=== PATIENT | male | born 1945 | race American Indian/Alaskan Native ===

== ENCOUNTER 2017-08-30 15:35 | Emergency (ER) | payer SELFPAY ==
[2017-08-30 17:08] VITALS: BP 138/70
== END 2017-08-30 23:00 | disposition left against medical advice (07) ==
LOC: ED 15:35
DX: M79.89 Other specified soft tissue disorders (principal); Z53.21 Procedure and treatment not carried out due to patient leaving prior to being seen by health care provider

== ENCOUNTER 2021-03-17 18:53 | Inpatient (IN) | payer MEDICARE ==
[2021-03-17] MEDS ORDERED: SODIUM CHLORIDE 0.9% 1000 ML 1,000 ML IV ONE (18:58)
[2021-03-17] MEDS ORDERED: TETANUS,DIPH,PERTUSS(ACELL) VACCINE 0.5 ML SYRINGE IM ONE (19:00)
[2021-03-17] MEDS ORDERED: IPRATROPIUM/ALBUTEROL SULFATE 3 ML AMPUL.NEB IH ONE (19:01)
--- NOTE | 2021-03-17 19:02 | Emergency Department Report ---
HPI - General Chief Complaint: Syncope Time Seen by Provider: 03/17/21 18:56 - HPI HPI: 75-year-old male with history of hypertension, asthma, and COPD is brought in by EMS after a syncopal episode and ground-level fall. The patient states that he was walking when he suddenly experienced lightheadedness and blacked out. He woke up and he was on the floor. He says he did not hit his head but that he only bumped his right elbow. He denies any preceding chest pain, shortness of breath, palpitations, sweating, or any other symptoms other than lighth eadedness. He does say that for the past 3 days he has not been eating well and has not been feeling well. According to the EMS report, the patient's initial blood pressure was 92/46. He was given 1 L of IV fluids which improved his blood pressure to 142/65. His heart rate was in the 100s to 110s. The patient states he has no complaints at this time. He is not vaccinated against COVID- 19. He denies any headache, vision change, neck pain, back pain, chest pain, palpitations, abdominal pain, nausea/vomiting, dysuria, focal weakness, sensory changes, vertigo, or any other complaints. He says his right elbow was only bumped and he has no significant pain there. ED Past Medical Hx - Past Medical History Previous Medical History?: Yes Hx Hypertension: Yes Hx Asthma: Yes Hx COPD: Yes Additional medical history: prostate - Surgical History Past Surgical History?: Yes Additional Surgical History: cataracts - Social History Smoking Status: Current Every Day Smoker Substance Use Type: None ED Review of Systems ROS: Stated complaint: WEAKNESS Other details as noted in HPI Constitutional: denies: chills, fever Eyes: denies: eye pain, vision change ENT: denies: throat pain, congestion Respiratory: denies: cough, shortness of breath Cardiovascular: syncope. denies: chest pain, palpitations Gastrointestinal: denies: abdominal pain, nausea, vomiting Genitourinary: denies: dysuria, frequency Musculoskeletal: denies: back pain, joint swelling Skin: denies: rash, pruritus Neurological: denies: headache, weakness, numbness, paresthesias Physical Exam - Physical Exam Vital Signs: Vital Signs 03/17/21 18:53 Temperature 98.2 F Pulse Rate 113 H Respiratory 26 H Rate Blood Pressure 135/75 O2 Sat by Pulse 100 Oximetry Physical Exam: GENERAL: Well developed and well nourished. No acute distress HEAD: Normocephalic. Possible contusion noted to the posterior occiput. No abrasions or lacerations. ENT: Moist mucous membranes. EYES: Extraocular movements are intact. Pupils are equal round and reactive to light bilaterally NECK: Supple. Full ROM is intact. Trachea is midline. LUNGS: Nonlabored breathing. Equal chest rise bilaterally. There are inspiratory and expiratory wheezes noted throughout. CARDIOVASCULAR: Regular rate and rhythm. No murmurs or rubs. VASCULAR: Cap refill < 2 seconds ABDOMEN: Abdomen is soft and nondistended. There is no significant tenderness, guarding or rebound. SKIN: Skin is warm and dry NEURO: Patient is awake, alert, and oriented. grader meat II-XII grossly intact. No focal deficits. Normal motor and sensory exam throughout. Normal speech. MUSCULOSKELETAL: No obvious deformities. There is an abrasion noted to the right elbow but there is normal range of motion and no bony tenderness. No significant tenderness. No tenderness of the chest wall. No hip tenderness. Normal ROM throughout. BACK/SPINE: No midline tenderness or step-offs of the C/T spine. There is midline tenderness noted to the lumbar spine. No costovertebral angle tenderness. ED Course Vital Signs 03/17/21 18:53 Temperature 98.2 F Pulse Rate 113 H Respiratory 26 H Rate Blood Pressure 135/75 O2 Sat by Pulse 100 Oximetry ED Medical Decision Making - Lab Data Result diagrams: 03/17/21 19:21 03/17/21 19:21 Lab Results 03/17/21 03/17/21 03/17/21 Range/Units 18:51 19:21 19:21 WBC 8.8 (4.5-11.0) K/mm3 RBC 4.34 (3.65-5.03) M/mm3 Hgb 13.9 (11.8-15.2) gm/dl Hct 40.5 (35.5-45.6) % MCV 93 (84-94) fl MCH 32 (28-32) pg MCHC 34 (32-34) % RDW 14.4 (13.2-15.2) % Plt Count 247 (140-440) K/mm3 Lymph % (Auto) 7.7 L (13.4-35.0) % Summers % (Auto) 7.1 (0.0-7.3) % Eos % (Auto) 3.9 (0.0-4.3) % Baso % (Auto) 0.2 (0.0-1.8) % Lymph # (Auto) 0.7 L (1.2-5.4) K/mm3 Summers # (Auto) 0.6 (0.0-0.8) K/mm3 Eos # (Auto) 0.3 (0.0-0.4) K/mm3 Baso # (Auto) 0.0 (0.0-0.1) K/mm3 Seg Neutrophils % 81.1 H (40.0-70.0) % Seg Neutrophils # 7.1 (1.8-7.7) K/mm3 PT 16.0 H (12.2-14.9) Sec. INR 1.22 H (0.87-1.13) APTT 25.6 (24.2-36.6) Sec. D-Dimer 7891.50 H (0-234) ng/mlDDU Sodium (137-145) mmol/L Potassium (3.6-5.0) mmol/L Chloride (98-107) mmol/L Carbon Dioxide (22-30) mmol/L Anion Gap mmol/L BUN (9-20) mg/dL Creatinine (0.8-1.3) mg/dL Estimated GFR ml/min BUN/Creatinine Ratio % Glucose (75-100) mg/dL POC Glucose 125 H (70-105) mg/dL Calcium (8.4-10.2) mg/dL Magnesium (1.7-2.3) mg/dL Ferritin (30.0-300.0) ng/mL Total Bilirubin (0.1-1.2) mg/dL Direct Bilirubin (0-0.2) mg/dL Indirect Bilirubin mg/dL AST (5-40) units/L ALT (7-56) units/L Alkaline Phosphatase (35-129) units/L Lactate Dehydrogenase (91-180) units/L Troponin T (0.00-0.029) ng/mL C-Reactive Protein (0.00-1.30) mg/dL NT-Pro-B Natriuret Pep (0-900) pg/mL Total Protein (6.3-8.2) g/dL Albumin (3.9-5) g/dL Albumin/Globulin Ratio % Triglycerides (2-149) mg/dL Cholesterol (50-199) mg/dL LDL Cholesterol Direct (50-130) mg/dL HDL Cholesterol (40-59) mg/dL Cholesterol/HDL Ratio % TSH (0.270-4.200) mlU/mL 03/17/21 03/17/21 03/17/21 Range/Units 19:21 19:21 19:21 WBC (4.5-11.0) K/mm3 RBC (3.65-5.03) M/mm3 Hgb (11.8-15.2) gm/dl Hct (35.5-45.6) % MCV (84-94) fl MCH (28-32) pg MCHC (32-34) % RDW (13.2-15.2) % Plt Count (140-440) K/mm3 Lymph % (Auto) (13.4-35.0) % Summers % (Auto) (0.0-7.3) % Eos % (Auto) (0.0-4.3) % Baso % (Auto) (0.0-1.8) % Lymph # (Auto) (1.2-5.4) K/mm3 Summers # (Auto) (0.0-0.8) K/mm3 Eos # (Auto) (0.0-0.4) K/mm3 Baso # (Auto) (0.0-0.1) K/mm3 Seg Neutrophils % (40.0-70.0) % Seg Neutrophils # (1.8-7.7) K/mm3 PT (12.2-14.9) Sec. INR (0.87-1.13) APTT (24.2-36.6) Sec. D-Dimer (0-234) ng/mlDDU Sodium 140 (137-145) mmol/L Potassium 4.2 (3.6-5.0) mmol/L Chloride 105.3 (98-107) mmol/L Carbon Dioxide 22 (22-30) mmol/L Anion Gap 17 mmol/L BUN 31 H (9-20) mg/dL Creatinine 2.0 H (0.8-1.3) mg/dL Estimated GFR 40 ml/min BUN/Creatinine Ratio 16 % Glucose 114 H (75-100) mg/dL POC Glucose (70-105) mg/dL Calcium 8.8 (8.4-10.2) mg/dL Magnesium 2.40 H (1.7-2.3) mg/dL Ferritin (30.0-300.0) ng/mL Total Bilirubin 0.50 (0.1-1.2) mg/dL Direct Bilirubin < 0.2 (0-0.2) mg/dL Indirect Bilirubin 0.3 mg/dL AST 38 (5-40) units/L ALT 65 H (7-56) units/L Alkaline Phosphatase 223 H (35-129) units/L Lactate Dehydrogenase (91-180) units/L Troponin T 0.029 (0.00-0.029) ng/mL C-Reactive Protein (0.00-1.30) mg/dL NT-Pro-B Natriuret Pep 1299 H (0-900) pg/mL Total Protein 7.1 (6.3-8.2) g/dL Albumin 4.1 (3.9-5) g/dL Albumin/Globulin Ratio 1.4 % Triglycerides (2-149) mg/dL Cholesterol (50-199) mg/dL LDL Cholesterol Direct (50-130) mg/dL HDL Cholesterol (40-59) mg/dL Cholesterol/HDL Ratio % TSH 2.130 (0.270-4.200) mlU/mL 03/17/21 03/17/21 03/17/21 Range/Units 19:21 19:21 19:21 WBC (4.5-11.0) K/mm3 RBC (3.65-5.03) M/mm3 Hgb (11.8-15.2) gm/dl Hct (35.5-45.6) % MCV (84-94) fl MCH (28-32) pg MCHC (32-34) % RDW (13.2-15.2) % Plt Count (140-440) K/mm3 Lymph % (Auto) (13.4-35.0) % Summers % (Auto) (0.0-7.3) % Eos % (Auto) (0.0-4.3) % Baso % (Auto) (0.0-1.8) % Lymph # (Auto) (1.2-5.4) K/mm3 Summers # (Auto) (0.0-0.8) K/mm3 Eos # (Auto) (0.0-0.4) K/mm3 Baso # (Auto) (0.0-0.1) K/mm3 Seg Neutrophils % (40.0-70.0) % Seg Neutrophils # (1.8-7.7) K/mm3 PT (12.2-14.9) Sec. INR (0.87-1.13) APTT (24.2-36.6) Sec. D-Dimer (0-234) ng/mlDDU Sodium (137-145) mmol/L Potassium (3.6-5.0) mmol/L Chloride (98-107) mmol/L Carbon Dioxide (22-30) mmol/L Anion Gap mmol/L BUN (9-20) mg/dL Creatinine (0.8-1.3) mg/dL Estimated GFR ml/min BUN/Creatinine Ratio % Glucose 115 H (75-100) mg/dL POC Glucose (70-105) mg/dL Calcium (8.4-10.2) mg/dL Magnesium (1.7-2.3) mg/dL Ferritin 340.1 H 337.1 H (30.0-300.0) ng/mL Total Bilirubin (0.1-1.2) mg/dL Direct Bilirubin (0-0.2) mg/dL Indirect Bilirubin mg/dL AST (5-40) units/L ALT (7-56) units/L Alkaline Phosphatase (35-129) units/L Lactate Dehydrogenase 201 H (91-180) units/L Troponin T (0.00-0.029) ng/mL C-Reactive Protein 0.40 (0.00-1.30) mg/dL NT-Pro-B Natriuret Pep (0-900) pg/mL Total Protein (6.3-8.2) g/dL Albumin (3.9-5) g/dL Albumin/Globulin Ratio % Triglycerides (2-149) mg/dL Cholesterol (50-199) mg/dL LDL Cholesterol Direct (50-130) mg/dL HDL Cholesterol (40-59) mg/dL Cholesterol/HDL Ratio % TSH (0.270-4.200) mlU/mL 03/17/21 Range/Units 23:56 WBC (4.5-11.0) K/mm3 RBC (3.65-5.03) M/mm3 Hgb (11.8-15.2) gm/dl Hct (35.5-45.6) % MCV (84-94) fl MCH (28-32) pg MCHC (32-34) % RDW (13.2-15.2) % Plt Count (140-440) K/mm3 Lymph % (Auto) (13.4-35.0) % Summers % (Auto) (0.0-7.3) % Eos % (Auto) (0.0-4.3) % Baso % (Auto) (0.0-1.8) % Lymph # (Auto) (1.2-5.4) K/mm3 Summers # (Auto) (0.0-0.8) K/mm3 Eos # (Auto) (0.0-0.4) K/mm3 Baso # (Auto) (0.0-0.1) K/mm3 Seg Neutrophils % (40.0-70.0) % Seg Neutrophils # (1.8-7.7) K/mm3 PT (12.2-14.9) Sec. INR (0.87-1.13) APTT (24.2-36.6) Sec. D-Dimer (0-234) ng/mlDDU Sodium (137-145) mmol/L Potassium (3.6-5.0) mmol/L Chloride (98-107) mmol/L Carbon Dioxide (22-30) mmol/L Anion Gap mmol/L BUN (9-20) mg/dL Creatinine (0.8-1.3) mg/dL Estimated GFR ml/min BUN/Creatinine Ratio % Glucose (75-100) mg/dL POC Glucose (70-105) mg/dL Calcium (8.4-10.2) mg/dL Magnesium (1.7-2.3) mg/dL Ferritin (30.0-300.0) ng/mL Total Bilirubin (0.1-1.2) mg/dL Direct Bilirubin (0-0.2) mg/dL Indirect Bilirubin mg/dL AST (5-40) units/L ALT (7-56) units/L Alkaline Phosphatase (35-129) units/L Lactate Dehydrogenase (91-180) units/L Troponin T 0.032 H (0.00-0.029) ng/mL C-Reactive Protein (0.00-1.30) mg/dL NT-Pro-B Natriuret Pep (0-900) pg/mL Total Protein (6.3-8.2) g/dL Albumin (3.9-5) g/dL Albumin/Globulin Ratio % Triglycerides 136 (2-149) mg/dL Cholesterol 158 (50-199) mg/dL LDL Cholesterol Direct 117 (50-130) mg/dL HDL Cholesterol 28 L (40-59) mg/dL Cholesterol/HDL Ratio 5.64 % TSH (0.270-4.200) mlU/mL - EKG Data -: EKG Interpreted by In - EKG Data 03/18/21 02:06 Atrial fibrillation with rapid ventricular response. Left axis deviation. Left anterior fascicular block. IVCD like pattern without significant ST segment or T wave abnormalities. - Radiology Data CHEST 2 VIEWS INDICATION / CLINICAL INFORMATION: Chest Pain. COMPARISON: None available. FINDINGS: SUPPORT DEVICES: None. HEART / MEDIASTINUM: No significant abnormality. LUNGS / PLEURA: Lungs are hyperexpanded. Chronic interstitial change No pneumothorax. Nodular density projects overlying left l aly however this is a crossing ribs. Follow-up chest x-ray recommended. Pelvis one view INDICATION: Pain FINDINGS: Degenerative changes in bilateral hips. Superior and inferior pubic rami appear intact. Degenerative change throughout spine Signer Name: Patrick Lewis MD Signed: 03/17/2021 6:34 PM Workstation Name: [id number] HEAD WITHOUT CONTRAST INDICATION : Syncopal episode. TECHNIQUE: Axial, coronal and sagittal CT imaging was performed from the skull apex through the skull base without contrast. All CT scans at this location are performed using CT dose reduction for ALARA by means of automated exposure control. COMPARISON: None available. FINDINGS: Motion artifact limits this exam. PARENCHYMA: No mass, midline shift, hemorrhage, extraaxial collection or acute territorial infarction. VENTRICLES: Symmetric and normal in size. SOFT TISSUES: No significant abnormality of the included soft tissues/orbits. BONES: No acute osseous abnormality. SINUSES: Changes from prior sinus surgery are noted with mild mucosal thickening along the right maxillary sinus and extensive because of thickening/opacification throughout the ethmoid air cells, sphenoid and frontal sinuses. The mastoid air cells are clear. ADDITIONAL FINDINGS: There is dense generalized intracranial atherosclerosis. IMPRESSION: 1. No acute intracranial abnormality. 2. Additional findings as above. Signer Name: Edwardo Ray MD Signed: 03/17/2021 10:55 PM Workstation Name: [id number] - Medical Decision Making 75-year-old male with COPD and asthma brought in by EMS after syncopal episode and ground-level fall. The patient had no preceding red flag symptoms. However, he was noted to be hypotensive with a blood pressure of 92/46 which improved to 142/60 1:05 liter of IV fluids. His heart rate is in the 100s to 110s and on the monitor appears to show atrial fibrillation with rapid ventricular response. His blood pressure has stabilized. He is afebrile. He is ANO x4 and has a nonfocal neurologic exam and no current complaints. He has an abrasion noted to right elbow but full range of motion without bony tenderness. We will give Tdap. He has inspiratory expiratory wheezes throughout. We will give duo nebs and IV Solu-Medrol. We will also give an additional 1 L of IV fluids. We will perform broad work-up with a full set of labs including EKG and chest x-ray. We will send the COVID-19 order set as well. We will perform CT of the head to assess for evidence of intracranial hemorrhage given that the patient is over the age of 61 with possible head contusion and loss of consciousness. We will also obtain CT of the C-spine and L-spine given possible midline tenderness on exam. We will monitor his heart rate closely and if necessary will initiate Cardizem drip to slow his heart rate. We will hold off on anticoagulation until the patient has undergone head CT. Labs reveal no leukocytosis or anemia. He is noted to have an JUAN DANIEL with a creat inine of 2.0. Initial troponin is negative. BNP is elevated at 1299. On repeat assessment at 815, the patient is resting comfortably in the bed. His heart rate remains in the 110s to 120s. His blood pressures stable. Normal oxygen saturation. Chest x-ray is equivocal. EKG appears to show atrial fibrillation with rapid ventricular response and ST elevation noted in lead V3 only. I spoke with Dr. [place] of cardiology who reviewed the EKG and stated that there is no STEMI. He stated that she has an IVCD-like pattern with nonspecific ST changes. There is nonspecific mild elevation of alk phos and ALT.I have ordered a right upper quadrant ultrasound to assess for evidence of cholelith iasis/cholecystitis. On repeat assessment at 10 PM, the patient is resting comfortably in the bed. His heart rate remains elevated in the 120s. I have ordered a Cardizem drip with a 10 mg IV bolus. The patient's D-dimer has returned elevated at 7891. We will perform CTA of the chest to assess for evidence of pulmonary embolism versus aortic dissection versus atypical pneumonia. The patient's repeat troponin is mildly elevated at 0.03 which I suspect is related to demand ischemia from his A. fib with RVR. On repeat assessment at 1220, patient's heart rate has improved to the high 90s. CT of the head, C-spine, and L-spine revealed no acute abnormalities. CTA of the chest shows no evidence of pulmonary embolism or pneumonia but there is evidence of possible aspiration. There is also mention of possibly dilated CBD. At 12:40 AM, I spoke with Dr. Steward the on-call hospitalist regarding the case and he agreed with my plan to initiate a heparin drip for anticoagulation and to give Levaquin for possible aspiration pneumonia. He accepts the patient for admission and will assume care. He understands that right upper quadrant ultrasound is still pending as well as urinalysis is still pending and will follow this up. Critical Care Time: Yes Critical care time in (mins) excluding proc time.: 80 Critical care attestation.: If time is entered above; I have spent that time in minutes in the direct care of this critically ill patient, excluding procedure time. Critical care time was spent in the evaluation, assessment, work-up, and management of atrial fibrillation with rapid ventricular rate requiring initiation of a Cardizem drip as well as a heparin drip, coordination with specialist, multiple reassessments reevaluations ED Disposition Clinical Impression: JUAN DANIEL (acute kidney injury), Syncope, New onset a-fib, Suspected 2019 novel coronavirus infection, COPD exacerbation, Concussion, Elevated troponin, Dehydration Disposition: 09 OP ADMIT IP TO THIS HOSP Is pt being admited?: Yes Condition: Stable
--- NOTE | 2021-03-17 19:38 | XRay Report ---
CHEST 2 VIEWS INDICATION / CLINICAL INFORMATION: Chest Pain. COMPARISON: None available. FINDINGS: SUPPORT DEVICES: None. HEART / MEDIASTINUM: No significant abnormality. LUNGS / PLEURA: Lungs are hyperexpanded. Chronic interstitial change No pneumothorax. Nodular density projects overlying left lung however this is a crossing ribs. Follow-up chest x-ray recommended. Pelvis one view INDICATION: Pain FINDINGS: Degenerative changes in bilateral hips. Superior and inferior pubic rami appear intact. Deg enerative change throughout spine Signer Name: Patrick Lewis MD Signed: 03/17/2021 7:34 PM Workstation Name: [id number]
[2021-03-17 19:59] LABS: Basophils % (Auto) 0.2 % (0.0-1.8); Eosinophils # (Auto) 0.3 K/mm3 (0.0-0.4); Eosinophils % (Auto) 3.9 % (0.0-4.3); Hematocrit 40.5 % (35.5-45.6); Hemoglobin 13.9 gm/dl (11.8-15.2); Lymphocytes # (Auto) 0.7 K/mm3 (1.2-5.4); Lymphocytes % (Auto) 7.7 % (13.4-35.0); Mean Corpuscular HGB Conc 34 % (32-34); Mean Corpuscular Volume 93 fl (84-94); Monocytes # (Auto) 0.6 K/mm3 (0.0-0.8); Monocytes % (Auto) 7.1 % (0.0-7.3); Platelet Count 247 K/mm3 (140-440); Red Blood Count 4.34 M/mm3 (3.65-5.03); Red Cell Distribution Width 14.4 % (13.2-15.2)
[2021-03-17 20:09] LABS: C-Reactive Protein 0.4 mg/dL (0.00-1.30)
[2021-03-17 20:10] LABS: Alanine Aminotransferase 65 units/L (7-56); Albumin 4.1 g/dL (3.9-5); BUN/Creatinine Ratio 16; Blood Urea Nitrogen 31 mg/dL (9-20); Calcium 8.8 mg/dL (8.4-10.2); Hemolysis Index 4
[2021-03-17 20:16] LABS: Bilirubin,Direct < 0.2 mg/dL (0-0.2)
[2021-03-17 20:33] LABS: INR 1.22 (0.87-1.13)
[2021-03-17 20:34] LABS: Partial Thromboplastin Time 25.6 Sec. (24.2-36.6)
[2021-03-17] MEDS ORDERED: dilTIAZem/D5W 100 MG/100 ML BAG IV SCH (22:00)
--- NOTE | 2021-03-17 23:59 | Cat Scan Report ---
CT HEAD WITHOUT CONTRAST INDICATION : Syncopal episode. TECHNIQUE: Axial, coronal and sagittal CT imaging was performed from the skull apex through the skul l base without contrast. All CT scans at this location are performed using CT dose reduction for ALA RA by means of automated exposure control. COMPARISON: None available. FINDINGS: Motion artifact limits this exam. PARENCHYMA: No mass, midline shift, hemorrhage, extraaxial collection or acute territorial infarctio n. VENTRICLES: Symmetric and normal in size. SOFT TISSUES: No significant abnormality of the included soft tissues/orbits. BONES: No acute osseous abnormality. SINUSES: Changes from prior sinus surgery are noted with mild mucosal thickening along the right maxi llary sinus and extensive because of thickening/opacification throughout the ethmoid air cells, sphen oid and frontal sinuses. The mastoid air cells are clear. ADDITIONAL FINDINGS: There is dense generalized intracranial atherosclerosis. IMPRESSION: 1. No acute intracranial abnormality. 2. Additional findings as above. Signer Name: Edwardo Ray MD Signed: 03/17/2021 11:55 PM Workstation Name: [id number]
--- NOTE | 2021-03-18 00:02 | Cat Scan Report ---
CT CERVICAL SPINE WITHOUT CONTRAST INDICATION: Syncope with collapse, possible neck injury. COMPARISON: None available. TECHNIQUE: Axial, coronal and sagittal CT imaging of the cervical spine without contrast was performe d. All CT scans at this location are performed using CT dose reduction for ALARA by means of automat ed exposure control. FINDINGS: VERTEBRAE:No acute fracture. Normal alignment. The bones are demineralized. DISC SPACES: Multilevel moderate discogenic degenerative changes are noted with severe degenerative c hanges at the atlantoaxial joint. FACET JOINTS:There is extensive bilateral facet arthropathy. CENTRAL CANAL: No central canal stenosis or neural foraminal narrowing. SOFT TISSUES:No acute findings. There is moderate generalized atherosclerosis. LUNG APICES: Biapical scarring is noted with moderate emphysema. ADDITIONAL FINDINGS: None IMPRESSION: 1. No acute findings. 2. Moderate/severe cervical spondylosis. Signer Name: Edwardo Ray MD Signed: 03/17/2021 11:58 PM Workstation Name: [id number]
--- NOTE | 2021-03-18 00:06 | Cat Scan Report ---
CT LUMBAR SPINE WITHOUT CONTRAST INDICATION: Syncope with collapse, possible back injury. COMPARISON: None available. TECHNIQUE: Axial, coronal and sagittal CT imaging of the lumbar spine without contrast was performed. All CT scans at this location are performed using CT dose reduction for ALARA by means of automated exposure control. FINDINGS: VERTEBRAE:No acute fracture. Normal alignment. The bones are demineralized. DISC SPACES: There are generalized mild discogenic degenerative changes. FACET JOINTS:There is generalized mild bilateral facet arthropathy. CENTRAL CANAL: Multilevel mild central canal stenoses are seen secondary to disc osteophyte complexes . There is mild bilateral neural foraminal narrowing at L5-S1. SOFT TISSUES:No acute findings. There is severe generalized atherosclerosis. An aortoiliac stent mingo t has been previously placed. An infrarenal abdominal aortic aneurysm measures up to 4.9 cm on image 63 of series 5. No other significant abnormalities. ADDITIONAL FINDINGS: None IMPRESSION: 1. No acute findings. 2. Additional findings as above. Signer Name: Edwardo Ray MD Signed: 03/18/2021 12:02 AM Workstation Name: [id number]
--- NOTE | 2021-03-18 00:12 | Cat Scan Report ---
CTA CHEST WITH IV CONTRAST INDICATION: Syncope with collapse. Possible PE. TECHNIQUE: Axial CT images were obtained through the chest after injection of 60 cc Omnipaque 350 IV contrast. 3 plane MIP reconstructions were produced. All CT scans at this location are performed using CT dose r eduction for ALARA by means of automated exposure control. COMPARISON: 2 views of the chest performed earlier today. FINDINGS: PULMONARY ARTERIES: No pulmonary emboli. AORTA AND ARTERIES: The thoracic aorta is normal in caliber with moderate generalized atherosclerosis . No other significant abnormality. HEART: No significant abnormality. MEDIASTINUM: No mass or lymphadenopathy. Nonobstructive secretions versus other aspirated material is seen along the trachea and main bronchi without other significant abnormalities. LUNGS: Moderate/severe emphysema is noted along the upper lobes predominantly with biapical scarring. No pneumothorax, pleural effusion or other significant abnormality. ADDITIONAL FINDINGS: None. UPPER ABDOMEN: There is moderate intrahepatic and extra hepatic biliary ductal station without visual ization of the obstructive stone or mass. The common bile duct measures up to 12 mm. An infrarenal ab dominal aortic aneurysm measures 5.1 x 5.0 cm on image 164 series 2, status post stent graft placemen t. No other acute findings. BONES: No acute findings. The bones are demineralized with moderate degenerative changes seen through out the spine. IMPRESSION: 1. No CT evidence for pulmonary embolism. 2. No acute findings in the chest. 3. Nonspecific biliary ductal dilatation is greater than expected for the patient's age. Please corre late with the clinical findings. 4. Additional findings as above. Signer Name: Edwardo Ray MD Signed: 03/18/2021 12:07 AM Workstation Name: [id number]
[2021-03-18] MEDS ORDERED: HEPARIN 10,000 UNITS/10 ML VIAL IV ONE (00:44)
[2021-03-18] MEDS ORDERED: HEPARIN 10,000 UNITS/10 ML VIAL IV PRN (00:44)
[2021-03-18] MEDS ORDERED: ONDANSETRON 4 MG/2 ML INJ IV PRN (00:55)
[2021-03-18] MEDS ORDERED: MORPHINE 2 MG/1 ML INJ IV PRN (00:55)
[2021-03-18] MEDS ORDERED: MAGNESIUM HYDROXIDE (MOM) ORAL LIQD UDC PO PRN (00:55)
[2021-03-18] MEDS ORDERED: MORPHINE 4 MG/1 ML INJ IV PRN (00:55)
[2021-03-18] MEDS ORDERED: ACETAMINOPHEN 325 MG TAB PO PRN (00:55)
[2021-03-18] MEDS ORDERED: HEPARIN/ 0.45% NACL DRIP 25,000 UNIT/500 ML BAG IV SCH (01:00)
[2021-03-18] MEDS ORDERED: SODIUM CHLORIDE 0.9% 1000 ML 1,000 ML IV SCH (01:00)
--- NOTE | 2021-03-18 01:09 | History and Physical Report ---
History of Present Illness Date of examination: 03/18/21 Date of admission: 03/18/2021 Chief complaint: Syncope Ground-level fall History of present illness: 75-year-old male with known history of hypertension, asthma and COPD brought into the emergency room by EMS after having a syncopal episode and a ground- level fall. Patient indicates that he was walking and suddenly had lightheadedness and collapsed. He woke up while on the floor and denies any headache and denies any head injury. He however states that he bumped his right elbow and had some abrasions. Patient denies any chest pain or shortness of breath, no nausea vomiting, no abdominal pain, no fever or chills, denies any headache prior to this episode. Upon arrival of EMS blood pressure was said to be low with systolic in the 90s and diastolic in the 40s. Was given a bolus of IV fluid normal saline 1 L with significant improvement of his blood pressure. Upon arrival in the emergency room patient was found to be in A. fib with RVR and subsequently started on Cardizem drip. Work-up in the emergency room today significant findings were: Chemistry elevated ALT of 65, BNP of 1000 299, elevated D-dimer of 7891. BUN and creatinine were [address] angiogram reveals no pulmonary embolism and no acute findings on the chest. There is nonspecific biliary ductal dilatation greater than expected for patient's age. CT of the cervical spine shows moderate to severe cervical spondylosis. CT of the lumbar spine shows no acute abnormality. Patient has been admitted with syncope, A. fib with RVR and JUAN DANIEL. Past History Past Medical History: COPD, hypertension, other (Asthma) Past Surgical History: Other (Cataract surgery) Social history: smoking (Current daily smoker) Family history: no significant family history Medications and Allergies Allergies Allergy/AdvReac Type Severity Reaction Status Date / Time No Known Allergies Allergy Verified 08/30/17 17:02 Home Medications Medication Instructions Recorded Confirmed Last Taken Type ALBUTEROL NEB's [Proventil 0.083% 3 ml IH DAILY 03/18/21 03/18/21 Unknown History NEBS] Oxycodone HCl/Acetaminophen 1 tab PO TID PRN 03/18/21 03/18/21 03/16/21 History [Oxycodone-Acetaminophen 10-325] lisinopriL [Lisinopril] 10 mg PO DAILY 03/18/21 03/18/21 03/17/21 09:00 History Active Meds: Active Medications Acetaminophen (Acetaminophen 325 Mg Tab) 650 mg PO Q6H PRN PRN Reason: Pain MILD(1-3)/Fever >100.5/MILLS Heparin Sodium (Porcine) (Heparin 10,000 Units/10 Ml Vial) 2,100 unit 40 unit/kg (2100 unit) IV Q6H PRN PRN Reason: Anti-Xa Assay < 0.1 units/ml Diltiazem HCl (Cardizem/D5w 100mg/100ml) 100 mg in 100 mls @ 5 mls/hr IV TITR LENORA; Protocol Last Admin: 03/18/21 00:25 Dose: 5 mg/hr, 5 mls/hr Documented by: Levofloxacin/Dextrose (Levaquin 750mg/150ml) 750 mg in 150 mls @ 100 mls/hr IV ONCE ONE; Protocol Stop: 03/18/21 02:10 Heparin Sodium/Sodium Chloride (Heparin/ 0.45% Nacl-25,000 Unit/500 Ml) 25,000 unit in 500 mls @ 15 mls/hr IV TITR LENORA; Protocol Sodium Chloride (Nacl 0.9% 1000 Ml) 1,000 mls @ 75 mls/hr IV DIRECT LENORA Magnesium Hydroxide (Magnesium Hydroxide (Mom) Oral Liqd Udc) 30 ml PO Q4H PRN PRN Reason: Constipation Morphine Sulfate (Morphine 2 Mg/1 Ml Inj) 2 mg IV Q4H PRN PRN Reason: Pain, Moderate (4-6) Morphine Sulfate (Morphine 4 Mg/1 Ml Inj) 4 mg IV Q4H PRN PRN Reason: Pain , Severe (7-10) Ondansetron HCl (Ondansetron 4 Mg/2 Ml Inj) 4 mg IV Q8H PRN PRN Reason: Nausea And Vomiting Sodium Chloride (Sodium Chloride 0.9% 10 Ml Flush Syringe) 10 ml IV BID LENORA Sodium Chloride (Sodium Chloride 0.9% 10 Ml Flush Syringe) 10 ml IV PRN PRN PRN Reason: LINE FLUSH Review of Systems Constitutional: no fever, no chills Ears, nose, mouth and throat: no nasal congestion, no sore throat Cardiovascular: no chest pain, no palpitations Respiratory: shortness of breath, no cough Gastrointestinal: no abdominal pain, no nausea, no vomiting, no diarrhea Genitourinary Male: no dysuria, no hematuria, no flank pain, no nocturia Musculoskeletal: no neck pain, no low back pain Integumentary: no rash, no pruritis Neurological: syncope, other (Lightheadedness), no headaches Psychiatric: no anxiety, no depression Endocrine: no polyphagia, no polydipsia, no polyuria, no nocturia Exam - Constitutional Vitals: Temp Pulse Resp BP Pulse Ox 98.2 F 110 H 27 H 154/84 100 03/17/21 18:53 03/18/21 00:25 03/17/21 21:49 03/18/21 00:25 03/17/21 21:49 General appearance: Present: no acute distress, well-nourished - EENT Eyes: Present: EOM intact ENT: hearing intact, clear oral mucosa, dentition normal - Neck Neck: Present: supple, normal ROM - Respiratory Respiratory effort: normal Respiratory: bilateral: CTA - Cardiovascular Rhythm: irregularly irregular Heart Sounds: Present: S1 & S2. Absent: gallop, systolic murmur, diastolic murmur, rub, click - Extremities Extremities: no ischemia, pulses intact, pulses symmetrical, No edema, normal temperature, normal color, Full ROM Peripheral Pulses: within normal limits - Abdominal General gastrointestinal: Present: soft, non-tender, non-distended, normal bowel sounds. Absent: mass - Integumentary Integumentary: Present: clear, warm, dry. Absent: rash - Musculoskeletal Musculoskeletal: strength equal bilaterally - Psychiatric Psychiatric: appropriate mood/affect, intact judgment & insight, memory intact, cooperative - Neurologic Neurologic: CNII-XII intact, no focal deficits, moves all extremities HEART Score - HEART Score Troponin: Troponin T 0.029 ng/mL (0.00-0.029) 03/17/21 19:21 Results - Labs CBC & Chem 7: 03/17/21 19:21 03/17/21 19:21 Labs: Abnormal lab results 03/17/21 03/17/21 03/17/21 Range/Units 18:51 19:21 19:21 Lymph % (Auto) 7.7 L (13.4-35.0) % Lymph # (Auto) 0.7 L (1.2-5.4) K/mm3 Seg Neutrophils % 81.1 H (40.0-70.0) % PT 16.0 H (12.2-14.9) Sec. INR 1.22 H (0.87-1.13) D-Dimer 7891.50 H (0-234) ng/mlDDU BUN (9-20) mg/dL Creatinine (0.8-1.3) mg/dL Glucose (75-100) mg/dL POC Glucose 125 H (70-105) mg/dL Magnesium (1.7-2.3) mg/dL Ferritin (30.0-300.0) ng/mL ALT (7-56) units/L Alkaline Phosphatase (35-129) units/L Lactate Dehydrogenase (91-180) units/L NT-Pro-B Natriuret Pep (0-900) pg/mL 03/17/21 03/17/21 03/17/21 Range/Units 19:21 19:21 19:21 Lymph % (Auto) (13.4-35.0) % Lymph # (Auto) (1.2-5.4) K/mm3 Seg Neutrophils % (40.0-70.0) % PT (12.2-14.9) Sec. INR (0.87-1.13) D-Dimer (0-234) ng/mlDDU BUN 31 H (9-20) mg/dL Creatinine 2.0 H (0.8-1.3) mg/dL Glucose 114 H 115 H (75-100) mg/dL POC Glucose (70-105) mg/dL Magnesium 2.40 H (1.7-2.3) mg/dL Ferritin 340.1 H (30.0-300.0) ng/mL ALT 65 H (7-56) units/L Alkaline Phosphatase 223 H (35-129) units/L Lactate Dehydrogenase 201 H (91-180) units/L NT-Pro-B Natriuret Pep 1299 H (0-900) pg/mL 03/17/21 Range/Units 19:21 Lymph % (Auto) (13.4-35.0) % Lymph # (Auto) (1.2-5.4) K/mm3 Seg Neutrophils % (40.0-70.0) % PT (12.2-14.9) Sec. INR (0.87-1.13) D-Dimer (0-234) ng/mlDDU BUN (9-20) mg/dL Creatinine (0.8-1.3) mg/dL Glucose (75-100) mg/dL POC Glucose (70-105) mg/dL Magnesium (1.7-2.3) mg/dL Ferritin 337.1 H (30.0-300.0) ng/mL ALT (7-56) units/L Alkaline Phosphatase (35-129) units/L Lactate Dehydrogenase (91-180) units/L NT-Pro-B Natriuret Pep (0-900) pg/mL Assessment and Plan - Patient Problems (1) Syncope Current Visit: Yes Status: Acute Plan to address problem: Etiology is unclear possibly secondary to dehydration and resultant hypotension. We will monitor vital signs closely including orthostatics. Patient will be scheduled for echocardiogram and carotid Doppler. (2) JUAN DANIEL (acute kidney injury) Current Visit: Yes Status: Acute Plan to address problem: Baseline BUN and creatinine unknown. Patient placed on IV fluid normal saline. Consult placed to nephrology for evaluation. Will monitor BUN and creatinine. (3) Dehydration Current Visit: Yes Status: Acute Plan to address problem: Patient placed on IV fluid. We will encourage adequate p.o. fluid intake. (4) Elevated troponin Current Visit: Yes Status: Acute Plan to address problem: Patient has denied any chest pain. Possibly troponin leak. Cardiology evaluation requested. (5) New onset a-fib Current Visit: Yes Status: Acute Plan to address problem: Patient denies any history of atrial fibrillation. He has been placed on Cardizem drip. We will schedule for echocardiogram and request cardiology follow-up. (6) Suspected 2019 novel coronavirus infection Current Visit: Yes Status: Acute Plan to address problem: Consult placed to infectious disease for evaluation. We will await COVID-19 testing. Patient has not been vaccinated against COVID-19. (7) DVT prophylaxis Current Visit: Yes Status: Acute Plan to address problem: Patient currently on anticoagulation with heparin. (8) Full code status Current Visit: Yes Status: Acute Plan to address problem: Patient is a full code.
[2021-03-18 01:58] LABS: Chol/HDL Ratio 5.64 %
--- NOTE | 2021-03-18 05:09 | Ultrasound Report ---
ULTRASOUND ABDOMEN, LIMITED (RIGHT UPPER QUADRANT) INDICATION: Elevated liver function testing. COMPARISON: None available. FINDINGS: Pancreas: Visualized portion shows no significant abnormality. Liver: No significant abnormality. Gallbladder: No significant abnormality. Sonographic Bourgeois's sign: Not performed. Bile ducts: No significant abnormality. Common Bile Duct measures 4.2 mm. Free fluid: None. Additional Findings: None. IMPRESSION: 1. No sonographic abnormality of the right upper quadrant. Signer Name: Edwardo Ray MD Signed: 03/18/2021 5:04 AM Workstation Name: [id number]
--- NOTE | 2021-03-18 07:57 | Consultation ---
History of Present Illness - Reason for Consult Consult date: 03/18/21 Rule out COVID-19 Requesting physician: ABIGAIL MARAVILLA - History of Present Illness 75-year-old male with history of hypertension, asthma, COPD, admitted on 03/17/2021 secondary to syncopal episode and a ground-level fall. Patient reports he suddenly became lightheaded and collapsed. Denies any headache, injuries, any recent fever, chills, cough, nausea, vomiting. On arrival, temperature 98.2, HR 150, RR 26, O2 sat 94%, BP 90s over 40s. Noted to be in RVR A. fib. Placed on Cardizem drip. Initial WBC 8.8, hemoglobin 15.9, platelets 247, D-dimer 7091, ferritin 340, creatinine 2, ALT 65, CRP 0.4. CT angiogram of the chest shows no pulmonary embolism. Noted nonspecific biliary ductal dilation. Patient is currently on room air. Review of Systems: positive in bold print General: Lightheadedness, falls Cutaneous: rash, pruritus Head: headaches or injury Eyes: changes in vision, eye pain, double vision Ears: ear pain, ear discharge, ringing or hearing loss Nose: nose bleeding, stuffiness Mouth & throat: bleeding gums, horseness, no dental problems, or swollen glands Neck: no pain, node enlargement/lumps, tyroid enlargement or tenderness Respiratory: SOB, cough, SPENCE, wheezing, sputum, hemoptysis, pleuritic chest pain Cardiovascular: chest pain, leg edema, cyanosis, SPENCE, orthopnea Musculoskeletal: edema, deformities, pain Gastrointestinal: nausea, vomiting, hematemesis, diarrhea, constipation, melena, bright red blood in stools, fecal incontinence, jaundice Genitourinary/Reproductive: frequent urination, dysuria, hematuria, incontinence Neurogical: seizures, headaches, weakness, paresthesias, loss of speech or vision; memory loss, vertigo, tremors, numbness Psychiatric: stable mood; excessive anxiety, sadness or moodiness Past History Past Medical History: COPD, hypertension, other (Asthma) Past Surgical History: Other (Cataract surgery) Social history: smoking (Current daily smoker) Family history: no significant family history Medications and Allergies Allergies Allergy/AdvReac Type Severity Reaction Status Date / Time No Known Allergies Allergy Verified 08/30/17 17:02 Home Medications Medication Instructions Recorded Confirmed Last Taken Type ALBUTEROL NEB's [Proventil 0.083% 3 ml IH DAILY 03/18/21 03/18/21 Unknown History NEBS] Oxycodone HCl/Acetaminophen 1 tab PO TID PRN 03/18/21 03/18/21 03/16/21 History [Oxycodone-Acetaminophen 10-325] lisinopriL [Lisinopril] 10 mg PO DAILY 03/18/21 03/18/21 03/17/21 09:00 History Active Meds: Active Medications Acetaminophen (Acetaminophen 325 Mg Tab) 650 mg PO Q6H PRN PRN Reason: Pain MILD(1-3)/Fever >100.5/MILLS Heparin Sodium (Porcine) (Heparin 10,000 Units/10 Ml Vial) 2,100 unit 40 unit/kg (2100 unit) IV Q6H PRN PRN Reason: Anti-Xa Assay < 0.1 units/ml Diltiazem HCl (Cardizem/D5w 100mg/100ml) 100 mg in 100 mls @ 5 mls/hr IV TITR LENORA; Protocol Last Admin: 03/18/21 00:25 Dose: 5 mg/hr, 5 mls/hr Documented by: Heparin Sodium/Sodium Chloride (Heparin/ 0.45% Nacl-25,000 Unit/500 Ml) 25,000 unit in 500 mls @ 15 mls/hr IV TITR LENORA; Protocol Last Admin: 03/18/21 02:45 Dose: 750 units/hr, 15 mls/hr Documented by: Sodium Chloride (Nacl 0.9% 1000 Ml) 1,000 mls @ 75 mls/hr IV DIRECT LENORA Last Admin: 03/18/21 05:51 Dose: 75 mls/hr Documented by: Magnesium Hydroxide (Magnesium Hydroxide (Mom) Oral Liqd Udc) 30 ml PO Q4H PRN PRN Reason: Constipation Morphine Sulfate (Morphine 2 Mg/1 Ml Inj) 2 mg IV Q4H PRN PRN Reason: Pain, Moderate (4-6) Morphine Sulfate (Morphine 4 Mg/1 Ml Inj) 4 mg IV Q4H PRN PRN Reason: Pain , Severe (7-10) Ondansetron HCl (Ondansetron 4 Mg/2 Ml Inj) 4 mg IV Q8H PRN PRN Reason: Nausea And Vomiting Sodium Chloride (Sodium Chloride 0.9% 10 Ml Flush Syringe) 10 ml IV BID LENORA Sodium Chloride (Sodium Chloride 0.9% 10 Ml Flush Syringe) 10 ml IV PRN PRN PRN Reason: LINE FLUSH Physical Examination - Physical Exam Narrative exam: General appearance: Alert in NAD pleasant Eyes: anicteric sclerae, moist conjunctivae; no lid-lag; PERRLA HENT: Normocephalic, Atraumatic; normal external ears, nares open, oropharynx clear Neck: supple, tracheal midline, no JVD Lungs: Distant breath sounds scattered wheezing CV: RRR no murmur Abdomen: Soft, non-tender; no masses or hepatosplenomegaly Extremities: no edema, no cyanosis Skin: No rash. Psych: no agitated Neuro: alert and oriented x 3. Moving all extermities - Constitutional Vitals: Vital Signs Temp Pulse Resp BP Pulse Ox 98.1 F 68 25 H 121/29 100 03/18/21 05:00 03/18/21 07:30 03/18/21 07:30 03/18/21 07:30 03/18/21 07:30 Temperature -Last 24 Hours Temperature 98.1 F Temperature 98.2 F Results - Labs CBC & Chem 7: 03/17/21 19:21 03/17/21 19:21 Labs: Abnormal lab results 03/17/21 03/17/21 03/17/21 Range/Units 18:51 19:21 19:21 Lymph % (Auto) 7.7 L (13.4-35.0) % Lymph # (Auto) 0.7 L (1.2-5.4) K/mm3 Seg Neutrophils % 81.1 H (40.0-70.0) % PT 16.0 H (12.2-14.9) Sec. INR 1.22 H (0.87-1.13) D-Dimer 7891.50 H (0-234) ng/mlDDU BUN (9-20) mg/dL Creatinine (0.8-1.3) mg/dL Glucose (75-100) mg/dL POC Glucose 125 H (70-105) mg/dL Magnesium (1.7-2.3) mg/dL Ferritin (30.0-300.0) ng/mL ALT (7-56) units/L Alkaline Phosphatase (35-129) units/L Lactate Dehydrogenase (91-180) units/L Troponin T (0.00-0.029) ng/mL NT-Pro-B Natriuret Pep (0-900) pg/mL HDL Cholesterol (40-59) mg/dL 03/17/21 03/17/21 03/17/21 Range/Units 19:21 19:21 19:21 Lymph % (Auto) (13.4-35.0) % Lymph # (Auto) (1.2-5.4) K/mm3 Seg Neutrophils % (40.0-70.0) % PT (12.2-14.9) Sec. INR (0.87-1.13) D-Dimer (0-234) ng/mlDDU BUN 31 H (9-20) mg/dL Creatinine 2.0 H (0.8-1.3) mg/dL Glucose 114 H 115 H (75-100) mg/dL POC Glucose (70-105) mg/dL Magnesium 2.40 H (1.7-2.3) mg/dL Ferritin 340.1 H (30.0-300.0) ng/mL ALT 65 H (7-56) units/L Alkaline Phosphatase 223 H (35-129) units/L Lactate Dehydrogenase 201 H (91-180) units/L Troponin T (0.00-0.029) ng/mL NT-Pro-B Natriuret Pep 1299 H (0-900) pg/mL HDL Cholesterol (40-59) mg/dL 03/17/21 03/17/21 Range/Units 19:21 23:56 Lymph % (Auto) (13.4-35.0) % Lymph # (Auto) (1.2-5.4) K/mm3 Seg Neutrophils % (40.0-70.0) % PT (12.2-14.9) Sec. INR (0.87-1.13) D-Dimer (0-234) ng/mlDDU BUN (9-20) mg/dL Creatinine (0.8-1.3) mg/dL Glucose (75-100) mg/dL POC Glucose (70-105) mg/dL Magnesium (1.7-2.3) mg/dL Ferritin 337.1 H (30.0-300.0) ng/mL ALT (7-56) units/L Alkaline Phosphatase (35-129) units/L Lactate Dehydrogenase (91-180) units/L Troponin T 0.032 H (0.00-0.029) ng/mL NT-Pro-B Natriuret Pep (0-900) pg/mL HDL Cholesterol 28 L (40-59) mg/dL Assessment and Plan Cultures: None Assessment:75-year-old male with history of hypertension, asthma, COPD, admitted on 03/17/2021 secondary to syncopal episode and a ground-level fall: #SIRS rule out sepsis: Initially very hypotensive and tachycardic, responded to IV fluids. Patient was found RVR A. fib. Chest x-ray unremarkable. CTA no consolidations, no PE. Urinalysis not available. Unclear etiology. ? Biliary ductal dilation. #Elevated LFTs: Mild. CTh shows nonspecific extra hepatic and intrahepatic ductal dilation. #RVR A. fib: On Cardizem drip and heparin drip. #Elevated D-dimer: CTA no pulmonary embolism. #JUAN DANIEL: Likely secondary to severe hypotension. Recommendations: -Obtain urinalysis -Follow-up SARS-CoV-2 PCR, even if it is positive patient currently on room air, no indication for dexamethasone or remdesivir. -Patient without leukocytosis or fever, monitor off antibiotics for now Will follow. Yina Silvestre MD Infectious Diseases [facility] M [phone] O [phone]
--- NOTE | 2021-03-18 10:40 | Consultation ---
History of Present Illness Consult date: 03/18/21 Requesting physician: SALAZAR SONI Consult reason: atrial fibrillation History of present illness: 75-year-old male history of COPD atrial fibrillation on review of records from [place] was on oral anticoagulation Eliquis. Had a syncopal episode. Patient is a poor historian. Patient has not been vaccinated is under PUI. Found to have acute renal sufficiency patient is no longer on Cardizem as patient is rate controlled. Patient states did not have any symptoms prior to passing out denies any chest pain shortness of breath lightheadedness. In the ER was found to be hypoxemic was placed on oxygen. Was found to have A. fib with RVR. Denies any fever chills. Past History Past Medical History: atrial fib, COPD, hypertension, other (Asthma) Past Surgical History: Other (Cataract surgery) Social history: smoking (Current daily smoker) Family history: no significant family history Medications and Allergies Allergies Allergy/AdvReac Type Severity Reaction Status Date / Time No Known Allergies Allergy Verified 08/30/17 17:02 Home Medications Medication Instructions Recorded Confirmed Last Taken Type ALBUTEROL NEB's [Proventil 0.083% 3 ml IH DAILY 03/18/21 03/18/21 Unknown History NEBS] Oxycodone HCl/Acetaminophen 1 tab PO TID PRN 03/18/21 03/18/21 03/16/21 History [Oxycodone-Acetaminophen 10-325] lisinopriL [Lisinopril] 10 mg PO DAILY 03/18/21 03/18/21 03/17/21 09:00 History Active Meds: Active Medications Acetaminophen (Acetaminophen 325 Mg Tab) 650 mg PO Q6H PRN PRN Reason: Pain MILD(1-3)/Fever >100.5/MILLS Apixaban (Apixaban 5 Mg Tab) 2.5 mg PO Q12HR LENORA; Protocol Diltiazem HCl (Diltiazem 30 Mg Tab) 30 mg PO Q6HR LENORA Sodium Chloride (Nacl 0.9% 1000 Ml) 1,000 mls @ 100 mls/hr IV DIRECT LENORA Stop: 03/18/21 18:59 Last Admin: 03/18/21 05:51 Dose: 75 mls/hr Documented by: Magnesium Hydroxide (Magnesium Hydroxide (Mom) Oral Liqd Udc) 30 ml PO Q4H PRN PRN Reason: Constipation Morphine Sulfate (Morphine 2 Mg/1 Ml Inj) 2 mg IV Q4H PRN PRN Reason: Pain, Moderate (4-6) Morphine Sulfate (Morphine 4 Mg/1 Ml Inj) 4 mg IV Q4H PRN PRN Reason: Pain , Severe (7-10) Ondansetron HCl (Ondansetron 4 Mg/2 Ml Inj) 4 mg IV Q8H PRN PRN Reason: Nausea And Vomiting Sodium Chloride (Sodium Chloride 0.9% 10 Ml Flush Syringe) 10 ml IV BID LENORA Sodium Chloride (Sodium Chloride 0.9% 10 Ml Flush Syringe) 10 ml IV PRN PRN PRN Reason: LINE FLUSH Review of Systems ROS unobtainable: due to mental status (as per hpi) Physical Examination Vital Signs Pulse Resp Pulse Ox 115 H 17 94 03/17/21 18:52 03/17/21 18:52 03/17/21 18:52 General appearance: cachectic HEENT: Positive: PERRL, EOMI Neck: Positive: neck supple Cardiac: Positive: Irregularly Regular Lungs: Positive: clear to auscultation, Decreased Breath Sounds Neuro: Positive: Grossly Intact Abdomen: Positive: Soft Extremities: Present: normal. Absent: edema Results 03/17/21 19:21 03/17/21 19:21 Cardiac Enzymes 03/17/21 03/17/21 Range/Units 19:21 19: AST 38 (5-40) units/L Lactate Dehydrogenase 201 H (91-180) units/L Coagulation 03/17/21 Range/Units 19:21 PT 16.0 H (12.2-14.9) Sec. INR 1.22 H (0.87-1.13) APTT 25.6 (24.2-36.6) Sec. Lipids 03/17/21 Range/Units 23:56 Triglycerides 136 (2-149) mg/dL Cholesterol 158 (50-199) mg/dL HDL Cholesterol 28 L (40-59) mg/dL Cholesterol/HDL Ratio 5.64 % CBC 03/17/21 Range/Units 19:21 WBC 8.8 (4.5-11.0) K/mm3 RBC 4.34 (3.65-5.03) M/mm3 Hgb 13.9 (11.8-15.2) gm/dl Hct 40.5 (35.5-45.6) % Plt Count 247 (140-440) K/mm3 Lymph # (Auto) 0.7 L (1.2-5.4) K/mm3 [place] # (Auto) 0.6 (0.0-0.8) K/mm3 Eos # (Auto) 0.3 (0.0-0.4) K/mm3 Baso # (Auto) 0.0 (0.0-0.1) K/mm3 Comprehensive Metabolic Panel 03/17/21 03/17/21 Range/Units 19:21 19:21 Sodium 140 (137-145) mmol/L Potassium 4.2 (3.6-5.0) mmol/L Chloride 105.3 (98-107) mmol/L Carbon Dioxide 22 (22-30) mmol/L BUN 31 H (9-20) mg/dL Creatinine 2.0 H (0.8-1.3) mg/dL Glucose 114 H 115 H (75-100) mg/dL Calcium 8.8 (8.4-10.2) mg/dL Direct Bilirubin < 0.2 (0-0.2) mg/dL Indirect Bilirubin 0.3 mg/dL AST 38 (5-40) units/L ALT 65 H (7-56) units/L Alkaline Phosphatase 223 H (35-129) units/L Total Protein 7.1 (6.3-8.2) g/dL Albumin 4.1 (3.9-5) g/dL - Imaging and Cardiology Echo: pending EKG interpretations - Telemetry EKG Rhythm: Atrial Fibrillation (Atrial fibrillation nonspecific ST-T's mild ST elevation in V2) Assessment and Plan 75-year-old cachectic male smoker has expiratory wheeze COPD has history of atrial fibrillation was supposed to be on oral anticoagulation unclear why not on medication history. Reinitiate a Eliquis at 2.5 mg twice a day given patient's body weight and renal insufficiency. Start low-dose Cardizem no longer Cardizem drip. Patient is awaiting Covid testing. Continue IV fluids and COPD treatment - Patient Problems (1) NSTEMI (non-ST elevated myocardial infarction) Current Visit: Yes Status: Acute (2) Acute respiratory failure with hypoxia Current Visit: Yes Status: Acute (3) Chronic a-fib Current Visit: Yes Status: Acute (4) JUAN DANIEL (acute kidney injury) Current Visit: Yes Status: Acute (5) COPD exacerbation Current Visit: Yes Status: Acute (6) Suspected 2019 novel coronavirus infection Current Visit: Yes Status: Acute (7) Syncope Current Visit: Yes Status: Acute Qualifiers: Syncope type: vasovagal syncope Qualified Code(s): R55 - Syncope and collapse
[2021-03-18] MEDS ORDERED: APIXABAN 5 MG TAB PO SCH ×2 (11:00)
[2021-03-18 11:18] LABS: Hematocrit 34.4 % (35.5-45.6); Hemoglobin 12.1 gm/dl (11.8-15.2); Mean Corpuscular HGB Conc 35 % (32-34); Mean Corpuscular Volume 92 fl (84-94); Platelet Count 238 K/mm3 (140-440); Red Blood Count 3.75 M/mm3 (3.65-5.03); Red Cell Distribution Width 14.7 % (13.2-15.2)
[2021-03-18] MEDS: APIXABAN 2.5 MG TAB PO SCH ×2 (11:20→21:44)
[2021-03-18 11:25] LABS: INR 1.18 (0.87-1.13)
[2021-03-18 11:26] LABS: Partial Thromboplastin Time 47.9 Sec. (24.2-36.6)
[2021-03-18] MEDS: dilTIAZem 30 MG TAB PO SCH ×2 (12:19→18:11)
--- NOTE | 2021-03-18 12:58 | Progress Note ---
Assessment and Plan - Patient Problems (1) Acute respiratory failure with hypoxia Current Visit: Yes Status: Acute Plan to address problem: Secondary to underlying COPD Patient on high flow nasal cannula oxygen Wean oxygen as tolerated (2) COPD exacerbation Current Visit: Yes Status: Acute Plan to address problem: Continue duo nebs and Solu-Medrol and antibiotics (3) Atrial fibrillation with RVR Current Visit: Yes Status: Acute Plan to address problem: Controlled (4) Elevated troponin Current Visit: Yes Status: Chronic Plan to address problem: Nonspecific (5) New onset a-fib Current Visit: Yes Status: Acute Plan to address problem: Patient initiated on Eliquis and Cardizem (6) Suspected 2019 novel coronavirus infection Current Visit: Yes Status: Acute Plan to address problem: Coronavirus pcr negative (7) Syncope Current Visit: Yes Status: Acute Qualifiers: Syncope type: vasovagal syncope Qualified Code(s): R55 - Syncope and collapse Plan to address problem: Secondary to A. fib and respiratory failure (8) DVT prophylaxis Current Visit: Yes Status: Acute Plan to address problem: On Eliquis and GI prophylaxis Subjective Date of service: 03/19/21 Principal diagnosis: Atrial fibrillation with RVR, syncope, COPD exacerbation Interval history: 75-year-old male with known history of hypertension, asthma and COPD brought into the emergency room by EMS after having a syncopal episode and a ground- level fall. Patient indicates that he was walking and suddenly had lightheadedness and collapsed. He woke up while on the floor and denies any headache and denies any head injury. He however states that he bumped his right elbow and had some abrasions. Patient denies any chest pain or shortness of breath, no nausea vomiting, no abdominal pain, no fever or chills, denies any headache prior to this episode. Upon arrival of EMS blood pressure was said to be low with systolic in the 90s and diastolic in the 40s. Was given a bolus of IV fluid normal saline 1 L with significant improvement of his blood pressure. Upon arrival in the emergency room patient was found to be in A. fib with RVR and subsequently started on Cardizem drip. Work-up in the emergency room today significant findings were: Chemistry elevated ALT of 65, BNP of 1000 299, elevated D-dimer of 7891. BUN and creatinine were [address] angiogram reveals no pulmonary embolism and no acute findings on the chest. There is nonspecific biliary ductal dilatation greater than expected for patient's age. CT of the cervical spine shows moderate to severe cervical spondylosis. CT of the lumbar spine shows no acute abnormality. Patient has been admitted with syncope, A. fib with RVR and JUAN DANIEL. 03/19/2021 Heart rate is improved to 60s but irregular Alert and responsive Wheezing present On high flow oxygen Objective - Constitutional Vitals: Vital Signs - 12hr 03/18/21 03/18/21 03/18/21 01:00 01:16 01:30 Temperature Pulse Rate 85 90 89 Respiratory 27 H 23 28 H Rate Blood Pressure 146/66 146/66 146/66 O2 Sat by Pulse 99 100 100 Oximetry 03/18/21 03/18/21 03/18/21 01:46 02:00 02:16 Temperature Pulse Rate 87 86 89 Respiratory 23 29 H 21 Rate Blood Pressure 146/66 137/68 137/68 O2 Sat by Pulse 100 99 99 Oximetry 03/18/21 03/18/21 03/18/21 02:30 02:46 03:00 Temperature Pulse Rate 84 82 79 Respiratory 30 H 23 28 H Rate Blood Pressure 137/68 137/68 109/58 O2 Sat by Pulse 100 100 100 Oximetry 03/18/21 03/18/21 03/18/21 03:16 03:30 03:46 Temperature Pulse Rate 75 75 73 Respiratory 28 H 27 H 26 H Rate Blood Pressure 109/58 109/58 109/58 O2 Sat by Pulse 100 98 98 Oximetry 03/18/21 03/18/21 03/18/21 04:00 04:16 04:30 Temperature Pulse Rate 76 79 76 Respiratory 25 H 25 H 33 H Rate Blood Pressure 101/62 101/62 101/62 O2 Sat by Pulse 94 95 96 Oximetry 03/18/21 03/18/21 03/18/21 04:40 05:00 05:26 Temperature 98.1 F Pulse Rate 75 70 Respiratory 28 H 25 H Rate Blood Pressure 101/62 O2 Sat by Pulse 97 99 Oximetry 03/18/21 03/18/21 03/18/21 05:37 05:40 05:55 Temperature Pulse Rate 67 65 67 Respiratory 16 21 28 H Rate Blood Pressure 133/46 133/46 O2 Sat by Pulse 98 88 100 Oximetry 03/18/21 03/18/2121 06:00 06:10 06:20 Temperature Pulse Rate 65 64 67 Respiratory 26 H 26 H 26 H Rate Blood Pressure 115/36 115/36 124/44 O2 Sat by Pulse 100 99 99 Oximetry 03/18/21 03/18/21 03/18/21 06:30 06:40 06:50 Temperature Pulse Rate 68 65 70 Respiratory 19 27 H 26 H Rate Blood Pressure 118/35 123/33 120/37 O2 Sat by Pulse 98 99 99 Oximetry 03/18/21 03/18/21 03/18/21 07:00 07:10 07:20 Temperature Pulse Rate 69 68 68 Respiratory 20 26 H 29 H Rate Blood Pressure 120/37 123/36 121/29 O2 Sat by Pulse 99 100 99 Oximetry 03/18/21 03/18/21 03/18/21 07:30 09:00 11:00 Temperature Pulse Rate 68 Respiratory 25 H 20 27 H Rate Blood Pressure 121/29 O2 Sat by Pulse 100 Oximetry 03/18/21 03/18/21 12:06 12:19 Temperature 98.1 F Pulse Rate 82 Respiratory Rate Blood Pressure 129/102 O2 Sat by Pulse Oximetry General appearance: Present: mild distress, well-nourished - EENT Eyes: PERRL, EOM intact ENT: hearing intact, clear oral mucosa Ears: bilateral: normal - Neck Neck: supple, normal ROM - Respiratory Respiratory effort: normal Respiratory: bilateral: CTA, rhonchi, wheezing - Breasts Breasts: normal - Cardiovascular Heart rate: 78 Rhythm: regular Heart Sounds: Present: S1 & S2. Absent: gallop, rub Extremities: pulses intact, No edema, normal color, Full ROM - Gastrointestinal General gastrointestinal: Present: soft, non-tender, non-distended, normal bowel sounds - Genitourinary Male genitourinary: normal - Integumentary Integumentary: clear, warm, dry - Musculoskeletal Musculoskeletal: 1, strength equal bilaterally - Neurologic Neurologic: moves all extremities - Psychiatric Psychiatric: memory intact, appropriate mood/affect, intact judgment & insight - Labs CBC & Chem 7: 03/20/21 03:12 03/21/21 05:15 Labs: Abnormal lab results 03/17/21 03/17/21 03/17/21 Range/Units 18:51 19:21 19:21 Hct (35.5-45.6) % MCHC (32-34) % Lymph % (Auto) 7.7 L (13.4-35.0) % Lymph # (Auto) 0.7 L (1.2-5.4) K/mm3 Seg Neutrophils % 81.1 H (40.0-70.0) % PT 16.0 H (12.2-14.9) Sec. INR 1.22 H (0.87-1.13) APTT (24.2-36.6) Sec. D-Dimer 7891.50 H (0-234) ng/mlDDU Heparin Anti-Xa Level (0.3-0.7) U.I./ml BUN (9-20) mg/dL Creatinine (0.8-1.3) mg/dL Glucose (75-100) mg/dL POC Glucose 125 H (70-105) mg/dL Magnesium (1.7-2.3) mg/dL Ferritin (30.0-300.0) ng/mL ALT (7-56) units/L Alkaline Phosphatase (35-129) units/L Lactate Dehydrogenase (91-180) units/L Troponin T (0.00-0.029) ng/mL NT-Pro-B Natriuret Pep (0-900) pg/mL HDL Cholesterol (40-59) mg/dL 03/17/21 03/17/21 03/17/21 Range/Units 19:21 19:21 19:21 Hct (35.5-45.6) % MCHC (32-34) % Lymph % (Auto) (13.4-35.0) % Lymph # (Auto) (1.2-5.4) K/mm3 Seg Neutrophils % (40.0-70.0) % PT (12.2-14.9) Sec. INR (0.87-1.13) APTT (24.2-36.6) Sec. D-Dimer (0-234) ng/mlDDU Heparin Anti-Xa Level (0.3-0.7) U.I./ml BUN 31 H (9-20) mg/dL Creatinine 2.0 H (0.8-1.3) mg/dL Glucose 114 H 115 H (75-100) mg/dL POC Glucose (70-105) mg/dL Magnesium 2.40 H (1.7-2.3) mg/dL Ferritin 340.1 H (30.0-300.0) ng/mL ALT 65 H (7-56) units/L Alkaline Phosphatase 223 H (35-129) units/L Lactate Dehydrogenase 201 H (91-180) units/L Troponin T (0.00-0.029) ng/mL NT-Pro-B Natriuret Pep 1299 H (0-900) pg/mL HDL Cholesterol (40-59) mg/dL 03/17/21 03/17/21 03/18/21 Range/Units 19:21 23:56 10:38 Hct (35.5-45.6) % MCHC (32-34) % Lymph % (Auto) (13.4-35.0) % Lymph # (Auto) (1.2-5.4) K/mm3 Seg Neutrophils % (40.0-70.0) % PT 15.6 H (12.2-14.9) Sec. INR 1.18 H (0.87-1.13) APTT 47.9 H (24.2-36.6) Sec. D-Dimer (0-234) ng/mlDDU Heparin Anti-Xa Level 0.23 L (0.3-0.7) U.I./ml BUN (9-20) mg/dL Creatinine (0.8-1.3) mg/dL Glucose (75-100) mg/dL POC Glucose (70-105) mg/dL Magnesium (1.7-2.3) mg/dL Ferritin 337.1 H (30.0-300.0) ng/mL ALT (7-56) units/L Alkaline Phosphatase (35-129) units/L Lactate Dehydrogenase (91-180) units/L Troponin T 0.032 H (0.00-0.029) ng/mL NT-Pro-B Natriuret Pep (0-900) pg/mL HDL Cholesterol 28 L (40-59) mg/dL 03/18/21 03/18/21 Range/Units 10:38 10:38 Hct 34.4 L D (35.5-45.6) % MCHC 35 H (32-34) % Lymph % (Auto) (13.4-35.0) % Lymph # (Auto) (1.2-5.4) K/mm3 Seg Neutrophils % (40.0-70.0) % PT (12.2-14.9) Sec. INR (0.87-1.13) APTT (24.2-36.6) Sec. D-Dimer (0-234) ng/mlDDU Heparin Anti-Xa Level (0.3-0.7) U.I./ml BUN (9-20) mg/dL Creatinine 1.6 H (0.8-1.3) mg/dL Glucose (75-100) mg/dL POC Glucose (70-105) mg/dL Magnesium (1.7-2.3) mg/dL Ferritin (30.0-300.0) ng/mL ALT (7-56) units/L Alkaline Phosphatase (35-129) units/L Lactate Dehydrogenase (91-180) units/L Troponin T (0.00-0.029) ng/mL NT-Pro-B Natriuret Pep (0-900) pg/mL HDL Cholesterol (40-59) mg/dL HEART Score - HEART Score Troponin: Troponin T 0.028 ng/mL (0.00-0.029) 03/18/21 06:28
[2021-03-18 14:53] LABS: Bilirubin,Urine NEG (Negative); Blood,Urine SM (Negative); Color,Urine Yellow (Yellow); Mucus,Urine FEW /HPF; Urobilinogen,Urine < 2.0 mg/dL (<2.0)
--- NOTE | 2021-03-18 16:16 | Consultation ---
History of Present Illness Consult date: 03/18/21 Requesting physician: SALAZAR SONI Reason for consult: other (Atrial Fibrilation with RVR) History of present illness: PULMONARY/CCM CONSULT NOTE (Full dictation # [id number]) Please see dictated notes for full details Past History Past Medical History: atrial fib, COPD, hypertension, other (Asthma) Past Surgical History: Other (Cataract surgery) Social history: smoking (Current daily smoker) Family history: no significant family history Medications and Allergies Allergies Allergy/AdvReac Type Severity Reaction Status Date / Time No Known Allergies Allergy Verified 08/30/17 17:02 Home Medications Medication Instructions Recorded Confirmed Last Taken Type ALBUTEROL NEB's [Proventil 0.083% 3 ml IH DAILY 03/18/21 03/18/21 Unknown History NEBS] Oxycodone HCl/Acetaminophen 1 tab PO TID PRN 03/18/21 03/18/21 03/16/21 History [Oxycodone-Acetaminophen 10-325] lisinopriL [Lisinopril] 10 mg PO DAILY 03/18/21 03/18/21 03/17/21 09:00 History Active Meds: Active Medications Acetaminophen (Acetaminophen 325 Mg Tab) 650 mg PO Q6H PRN PRN Reason: Pain MILD(1-3)/Fever >100.5/MILLS Apixaban (Apixaban 2.5 Mg Tab) 2.5 mg PO Q12HR LENORA Last Admin: 03/18/21 11:20 Dose: 2.5 mg Documented by: Diltiazem HCl (Diltiazem 30 Mg Tab) 30 mg PO Q6HR LENORA Last Admin: 03/18/21 12:19 Dose: 30 mg Documented by: Sodium Chloride (Nacl 0.9% 1000 Ml) 1,000 mls @ 100 mls/hr IV DIRECT LENORA Stop: 03/18/21 18:59 Last Admin: 03/18/21 05:51 Dose: 75 mls/hr Documented by: Magnesium Hydroxide (Magnesium Hydroxide (Mom) Oral Liqd Udc) 30 ml PO Q4H PRN PRN Reason: Constipation Morphine Sulfate (Morphine 2 Mg/1 Ml Inj) 2 mg IV Q4H PRN PRN Reason: Pain, Moderate (4-6) Morphine Sulfate (Morphine 4 Mg/1 Ml Inj) 4 mg IV Q4H PRN PRN Reason: Pain , Severe (7-10) Ondansetron HCl (Ondansetron 4 Mg/2 Ml Inj) 4 mg IV Q8H PRN PRN Reason: Nausea And Vomiting Sodium Chloride (Sodium Chloride 0.9% 10 Ml Flush Syringe) 10 ml IV BID LENORA Last Admin: 03/18/21 10:21 Dose: 10 ml Documented by: Sodium Chloride (Sodium Chloride 0.9% 10 Ml Flush Syringe) 10 ml IV PRN PRN PRN Reason: LINE FLUSH Physical Examination Vital signs: Vital Signs Pulse Resp Pulse Ox 115 H 17 94 03/17/21 18:52 03/17/21 18:52 03/17/21 18:52 Results - Laboratory Findings CBC and BMP: 03/18/21 10:38 03/18/21 10:38 PT/INR, D-dimer PT 15.6 Sec. (12.2-14.9) H 03/18/21 10:38 INR 1.18 (0.87-1.13) H 03/18/21 10:38 D-Dimer 7891.50 ng/mlDDU (0-234) H 03/17/21 19:21 Abnormal lab findings: Abnormal Labs 03/17/21 03/17/21 03/17/21 18:51 19:21 19:21 Hct MCHC Lymph % (Auto) 7.7 L Lymph # (Auto) 0.7 L Seg Neutrophils % 81.1 H PT 16.0 H INR 1.22 H APTT D-Dimer 7891.50 H Heparin Anti-Xa Level BUN Creatinine Glucose POC Glucose 125 H Magnesium Ferritin ALT Alkaline Phosphatase Lactate Dehydrogenase Troponin T NT-Pro-B Natriuret Pep HDL Cholesterol Ur Specific [place] Urine WBC (Auto) 03/17/21 03/17/21 03/17/21 19:21 19:21 19:21 Hct MCHC Lymph % (Auto) Lymph # (Auto) Seg Neutrophils % PT INR APTT D-Dimer Heparin Anti-Xa Level BUN 31 H Creatinine 2.0 H Glucose 114 H 115 H POC Glucose Magnesium 2.40 H Ferritin 340.1 H ALT 65 H Alkaline Phosphatase 223 H Lactate Dehydrogenase 201 H Troponin T NT-Pro-B Natriuret Pep 1299 H HDL Cholesterol Ur Specific [place] Urine WBC (Auto) 03/17/21 03/17/21 03/18/21 19:21 23:56 10:38 Hct MCHC Lymph % (Auto) Lymph # (Auto) Seg Neutrophils % PT 15.6 H INR 1.18 H APTT 47.9 H D-Dimer Heparin Anti-Xa Level 0.23 L BUN Creatinine Glucose POC Glucose Magnesium Ferritin 337.1 H ALT Alkaline Phosphatase Lactate Dehydrogenase Troponin T 0.032 H NT-Pro-B Natriuret Pep HDL Cholesterol 28 L Ur Specific [place] Urine WBC (Auto) 03/18/21 03/18/21 03/18/21 10:38 10:38 13:30 Hct 34.4 L D MCHC 35 H Lymph % (Auto) Lymph # (Auto) Seg Neutrophils % PT INR APTT D-Dimer Heparin Anti-Xa Level BUN Creatinine 1.6 H Glucose POC Glucose Magnesium Ferritin ALT Alkaline Phosphatase Lactate Dehydrogenase Troponin T NT-Pro-B Natriuret Pep HDL Cholesterol Ur Specific [place] 1.044 H Urine WBC (Auto) 10.0 H
[2021-03-18] MEDS: FAMOTIDINE 20 MG TAB PO SCH (17:11)
--- NOTE | 2021-03-18 18:12 | Vascular Lab Report ---
DUPLEX DOPPLER ULTRASOUND CAROTID, BILATERAL INDICATION / CLINICAL INFORMATION: Syncope. COMPARISON: None available. FINDINGS: RIGHT CAROTID: Moderate plaque throughout the CCA and proximal ICA - PLAQUE ESTIMATE (%): < 50% - CCA velocity: 143 cm/sec. - ICA peak systolic velocity: 126 cm/sec. - ICA/CCA PSV Ratio: 0.9 Right Vertebral Artery: Antegrade flow. LEFT CAROTID: - PLAQUE ESTIMATE: < 50% - CCA velocity: 186 cm/sec. - ICA peak systolic velocity: 166 cm/sec. - ICA/CCA PSV Ratio: 0.9 Left Vertebral Artery: Antegrade flow. IMPRESSION: 1. Right Internal Carotid Artery: Less than 50% diameter stenosis. 2. Left Internal Carotid Artery: Less than 50% diameter stenosis. There is plaque in the right common carotid artery which is less than 50%. Velocity criteria are extrapolated from diameter data as defined by the Society of Radiologists in [facility] Consensus Conference, Radiology 2003; 229;340-346. NO STENOSIS (NORMAL) * Plaque = none; ICA PSV < 125 cm/sec; ICA/CCA PSV Ratio < 2.0 <50% STENOSIS * Plaque < 50%; ICA PSV < 125 cm/sec; ICA/CCA PSV Ratio < 2.0 50-69% STENOSIS * Plaque > 50%; ICA PSV = 125-230 cm/sec; ICA/CCA PSV Ratio = 2.0-4.0 >70% BUT <100% STENOSIS * Plaque > 50%; ICA PSV > 230 cm/sec; ICA/CCA PSV Ratio > 4.0 NEAR OCCLUSION * Plaque = visible lumen; ICA PSV = high/low/none; ICA/CCA PSV Ratio = variable TOTAL OCCLUSION * Plaque = no lumen; ICA PSV = none; ICA/CCA PSV Ratio = N/A Signer Name: Patrick Lewis MD Signed: 03/18/2021 6:08 PM Workstation Name: [id number]
[2021-03-18] MEDS: BUDESONIDE 0.5 MG/2 ML NEBU IH SCH (22:13)
[2021-03-18] MEDS: ARFORMOTEROL 15 MCG/2 ML NEBU IH SCH (22:13)
--- NOTE | 2021-03-18 23:11 | Consultation ---
DATE OF CONSULTATION: 03/18/2021 PULMONARY CRITICAL CARE CONSULTATION NOTE CONSULTING PHYSICIANS: 1. Dr. Trejo. 2. Dr. Steward. REASON FOR CONSULTATION: Atrial fibrillation with a rapid ventricular response, syncopal episodes, shortness of breath, acute hypoxemic respiratory failure on chronic. CHIEF COMPLAINT AND HISTORY OF PRESENT ILLNESS: As follows: The patient is a 75-year-old male with a past medical history significant amongst other things for a diagnosis of COPD for which he is telling me he is on home oxygen and brought into the Emergency Room by [facility] after having had a syncopal episode at a ground level fall. He claims that he suddenly had lightheadedness. He collapsed. He woke up on the floor. Denies any head injury. Really does not know how long he was unconscious. He bumped his right elbow, had some abrasions. He denied chest pain or increased shortness of breath. He denied nausea, vomiting, fevers or chills. He denied any cough or expectoration prior to this occurrence in particular. He denied any hemoptysis. When EMS got there, they found him to be hypotensive, O2 sats systolics in the 90s, diastolic in the 40s. He received volume rehydration, normal saline bolus with good response. In the Emergency Room, was found to be in atrial fibrillation with a rapid ventricular response, started on Cardizem drip and brought into the Intensive Care Unit. The venous thromboembolic disease workup was negative. A CT of the chest negative. There was no evidence of acute spinal cord injury or C-spine fracture. When I stopped by to see him, he remained on supplemental oxygen 45% via high flow nasal cannula 20 liters flow, but stated he was feeling better and had no further syncopal episodes or episodes of lightheadedness. This really is as much of the history of presentation as I have. PAST MEDICAL HISTORY: COPD, home oxygen dependent, hypertension. PAST SURGICAL HISTORY: He has had cataract surgery. MEDICATIONS: He was on at the time I stopped by to see him were reviewed, pertinent medications include the following: Tylenol 650 mg p.o. q. 6 hours p.r.n. mild pain or fevers, Eliquis 2.5 mg p.o. q. 12 hours., oral diltiazem had been started, drip being weaned off, 30 mg p.o. q. 6 hours, morphine sulfate 2 mg IV q. 4 hours p.r.n. moderate pain and 4 mg IV q. 4 hours p.r.n. severe pain, Zofran 4 mg IV q. 8 hours p.r.n. nausea and vomiting. ALLERGIES: No known drug allergies. DIET: Thin gentleman. Denies acute weight loss or gain in the preceding few weeks to months. FAMILY AND SOCIAL HISTORY: Lives in the community. He admits to a 20+ pack year tobacco smoking history. Denies alcohol or illicit drug use or abuse. FAMILY HISTORY: Otherwise unknown. REVIEW OF SYSTEMS: Difficult to obtain secondary to his medical and mental status and his memory, but he denies gross hematochezia or melena. Denies gross hematuria or dysuria. Denies hematemesis. Denies hemoptysis. Denies heat or cold intolerance. Denies polydipsia or polyuria. Complete 13 system review of systems obtained. Pertinent positives and/or negatives as in body of history above, otherwise they are noncontributory. PHYSICAL EXAMINATION: VITAL SIGNS: At presentation, he was afebrile, temperature 98.2 degrees Fahrenheit with a pulse as high as in the 130s, respiratory rate as high as 26, blood pressure 135/75, O2 sats were 94%, at the time I saw him, O2 sats were 98% and that was on 35% FIO2 via high flow. GENERAL: Elderly looking chronically ill looking male. Normocephalic, atraumatic. Resting in bed, but with mildly increased respiratory effort at rest. HEAD, EYES, EARS, NOSE AND THROAT: Anicteric. No conjunctival erythema. Oropharynx was moist. NECK: No gross jugular venous distention, no thyromegaly. Grossly, there were no palpable lymph nodes in the supraclavicular or submandibular lymph node chains. LUNGS: Auscultation of both lung [place] significant for diminished bilateral breath sounds, prolonged expiratory phase, but clear. HEART: Sounds 1 and 2 are heard at the time of my evaluation, regular rate and rhythm without overt rubs or murmurs. Occasional extrasystole. ABDOMEN: Soft, flat, bowel sounds are positive, nontender, no palpable hepatosplenomegaly. EXTREMITIES: Without overt digital clubbing or cyanosis, no pedal edema. Pedal pulses are 2+ bilaterally. NEUROLOGIC: Pupils are equal, round, about 3 mm, reactive to light. Extraocular muscle movements are intact. He moves all 4 extremities spontaneously. SKIN: Poor turgor; however, without overt cellulitis or rash in the areas I examined. Please see the wound care nurses' notes for full description of her skin. PSYCHIATRIC: Mood was normal. Affect was appropriate. He had poor judgment and insight. LABORATORY DATA: From my review are as follows: Admission white cell count 8800, hemoglobin 13.9, hematocrit 40.5, platelet count 245. INR 1.22. D-dimer elevated at 7891. Serum sodium was 140, potassium 4.2, chloride 105, bicarbonate 22, BUN 31, creatinine 2.0, glucose 115. Magnesium was up 2.4. Ferritin 337, AST 38, ALT 65. Troponin was within normal limits at presentation. LDL cholesterol 117. Prolactin unremarkable. TSH within normal limits. Urinalysis negative for nitrites. He did have moderate leukocyte esterase and 10 white cells per high power field. Radiographic studies have been reviewed. Chest x-ray, no acute process, COPD with flattening and tenting of the hemidiaphragms. No gross cardiomegaly. X-rays of the pelvis, no acute fractures, just degenerative changes. CT scan of the head, no acute intracranial abnormality. CT scan of the neck, no acute findings. No C-spine fracture. CT lumbar spine: No fracture. CT scan of the chest, again this was a contrast CT scan, good opacification of the pulmonary arteries. No gross filling defects consistent with larger order pulmonary emboli. Lung windows, both motion artifact, particularly in the bases and upper lung zone bullous emphysematous changes. No gross pneumothorax, no gross bony fractures. Ultrasound of the abdomen is unremarkable. Carotid Dopplers have not been read. ASSESSMENT: 1. Atrial fibrillation with rapid ventricular response. 2. Acute on chronic hypoxemic respiratory failure. 3. Syncopal episode. 4. Acute kidney injury. 5. Non-ST elevation myocardial infarction with current elevated troponin. 6. Person under investigation for COVID-19 infection. 7. Adult failure to thrive. 8. Elevated serum transaminase. 9. Possible urinary tract infection. PLAN: I will defer to Cardiology. We will continue Cardizem for rate control. Blood pressure is holding at this point of time. He will be weaned off IV Cardizem. We will continue empiric anticoagulation. I will get Dopplers of his lower extremities. He completed venous thromboembolic disease workup. COVID-19 test is negative. Airborne and contact isolation will be discontinued. Oxygen will be weaned to keep sats greater than or equal to about 88-90% acutely with restrictive oxygen therapies. ABG will be ordered to evaluate for hypercapnia. Bronchodilators will be scheduled. I will schedule long-acting bronchodilators with inhaled corticosteroids for the COPD and then I will hold on systemic steroids at this point. He is again fully anticoagulated. He will be placed on GI prophylaxis with Pepcid. Chronic disease medications will be deferred to the attending physician. Glycemic control will be for target blood glucose of 140-180 mg/dL while critically ill. Flu and pneumonia vaccination will be addressed per protocol. Gentle hydration will be continued for the acute kidney injury. Nephrology consultation will be at the behest of the attending physician. He received Levaquin in the Emergency Room. I will defer to the Infectious Disease physician to see if he wants to continue therapy without for possible UTI. In the meantime, I will send urine cultures. Thank you very much for the consult. We will follow along and make further recommendations as picture progresses/becomes clearer. He is critically ill on lifesaving interventions including the vasoactive medications for rate control at high risk of from cardiopulmonary system decompensation. This time was spent about 35-40 minutes of critical care time without overlap and excluding any procedural time that may be necessary. TID: [id number] RECEIPT: [id number] ENRIQUE/RAJNI
--- NOTE | 2021-03-18 23:23 | Consultation ---
DATE OF CONSULTATION: 03/18/2021 REFERRING PHYSICIAN: Dr. Tiffanie Trejo. INDICATION: Increased liver function tests. HISTORY OF PRESENT ILLNESS: The patient is a 75-year-old male with a history of hypertension, asthma, and COPD. The patient was admitted after a syncopal episode and a fall to the ground. The patient indicates he was walking and suddenly got lightheaded and collapsed. The patient denies any history of problems like this in the past. The patient denies a history of liver disease in the past. He reports no jaundice. Denies any recent diet or medication changes. The patient was subsequently noted to have increased liver function tests and GI consulted to aid in management. No other specific complaints. PAST MEDICAL HISTORY: 1. COPD. 2. Hypertension. 3. Asthma. MEDICATIONS: Reviewed and updated in chart. ALLERGIES: No known drug allergies. SOCIAL HISTORY: Positive smoker. Social alcohol. FAMILY HISTORY: Negative for colon cancer, IBD, or liver disease. REVIEW OF SYSTEMS: GENERAL: Reports mild weakness. HEENT: No visual complaints or tinnitus. PULMONARY: Denies shortness of breath, chest pain. GASTROINTESTINAL: Reports no complaints. All points of 13-point review of systems otherwise negative. PHYSICAL EXAMINATION: VITAL SIGNS: Temperature of 98.1, pulse 82, respirations 18, blood pressure 129/90. GENERAL: Fairly nourished male, in no acute distress. HEENT: Pupils round and reactive. PULMONARY: Clear to auscultation bilaterally. CARDIOVASCULAR: Regular rhythm. Normal S1, S2. ABDOMEN: Positive bowel sounds. SKIN: No obvious rashes. LABORATORY DATA: Pertinent for white count of 6.7, hemoglobin and hematocrit of 12.1 and 34.4, platelet count 238. Chem-7 within normal limits except for BUN and creatinine of 31 and 2. INR of 1.18. Total bilirubin of 0.5, AST and ALT of 38 and 65 with alkaline phosphatase of 223. IMAGING: CT scan of the chest and upper abdomen showed no acute findings. Ultrasound of the abdomen performed on 03/17/2021 showed no pathology. ASSESSMENT AND PLAN: A 75-year-old male found after a syncopal episode, now with increased liver function tests. Suspicion is the patient had mildly hypotensive episode, which has now led to liver function going up. This is versus other potential etiologies including medication induced versus alcohol versus other. PLAN: 1. Liver related labs. 2. We will review liver ultrasound. 3. Hemodynamic stability and management per primary team. 4. No planned liver biopsy at this time. 5. The patient can otherwise be discharged if liver numbers are trending down and have further evaluation and management as an outpatient. 6. Will follow. TID: [id number] RECEIPT: [id number] CAB/SHE
[2021-03-19] MEDS: dilTIAZem 30 MG TAB PO SCH ×4 (00:34→17:24)
[2021-03-19 05:13] LABS: Basophils % (Auto) 0.2 % (0.0-1.8); Eosinophils # (Auto) 0.3 K/mm3 (0.0-0.4); Hematocrit 33.9 % (35.5-45.6); Hemoglobin 11.8 gm/dl (11.8-15.2); Lymphocytes # (Auto) 0.5 K/mm3 (1.2-5.4); Lymphocytes % (Auto) 12.3 % (13.4-35.0); Mean Corpuscular HGB Conc 35 % (32-34); Mean Corpuscular Volume 93 fl (84-94); Monocytes # (Auto) 0.4 K/mm3 (0.0-0.8); Monocytes % (Auto) 9.9 % (0.0-7.3); Platelet Count 213 K/mm3 (140-440); Red Blood Count 3.67 M/mm3 (3.65-5.03); Red Cell Distribution Width 14.5 % (13.2-15.2)
[2021-03-19 05:21] LABS: INR 1.31 (0.87-1.13)
[2021-03-19 05:30] LABS: Calcium 8.9 mg/dL (8.4-10.2)
[2021-03-19 05:32] LABS: Alanine Aminotransferase 62 units/L (7-56); Albumin 3.5 g/dL (3.9-5)
[2021-03-19 05:43] LABS: Bilirubin,Direct < 0.2 mg/dL (0-0.2)
--- NOTE | 2021-03-19 07:47 | Event Note ---
Date: 03/18/21 Patient admitted early a.m. History and physical reviewed Patient in A. fib-RVR is improved Cardiology consult appreciated patient is still wheezing Patient started on Eliquis and low-dose Cardizem IV Cardizem discontinued Patient will be transferred to [facility] fluids
[2021-03-19] MEDS: APIXABAN 2.5 MG TAB PO SCH ×2 (09:26→21:33)
[2021-03-19] MEDS: FAMOTIDINE 20 MG TAB PO SCH (09:26)
--- NOTE | 2021-03-19 10:32 | Progress Note ---
Assessment and Plan 75-year-old cachectic male smoker has expiratory wheeze COPD has history of atrial fibrillation was supposed to be on oral anticoagulation unclear why not on medication history. Reinitiate a Eliquis at 2.5 mg twice a day given patient's body weight and renal insufficiency. Patient is Covid negative kidney function has improved if patient's kidney function continues to improve will increase Eliquis to 5 mg twice a day continue Cardizem patient is on high flow oxygen treating for pneumonia. Will consider an ischemic evaluation for non- STEMI type II once patient's respiratory status is stable may be considered as an outpatient - Patient Problems (1) NSTEMI (non-ST elevated myocardial infarction) Current Visit: Yes Status: Acute (2) Acute respiratory failure with hypoxia Current Visit: Yes Status: Acute (3) Chronic a-fib Current Visit: Yes Status: Acute (4) JUAN DANIEL (acute kidney injury) Current Visit: Yes Status: Acute (5) COPD exacerbation Current Visit: Yes Status: Acute (6) Suspected 2019 novel coronavirus infection Current Visit: Yes Status: Acute (7) Syncope Current Visit: Yes Status: Acute Qualifiers: Syncope type: vasovagal syncope Qualified Code(s): R55 - Syncope and collapse Subjective Date of service: 03/19/21 Principal diagnosis: Atrial fibrillation with RVR, syncope Interval history: no chest pain Objective Vital Signs Temp Pulse Pulse Resp Resp BP Pulse Ox 03/19/21 09:27 98.2 F 03/19/21 08:00 70 20 03/19/21 06:47 84 164/97 03/19/21 04:00 99.2 F 67 25 H 03/19/21 02:00 100 03/19/21 00:34 73 158/39 03/19/21 00:00 98.4 F 70 25 H 03/18/21 22:14 78 24 03/18/21 20:00 98.3 F 87 25 H 100 03/18/21 18:11 80 131/59 03/18/21 16:00 97.6 F 74 27 H 03/18/21 15:45 100 03/18/21 13:27 98 03/18/21 12:19 82 129/102 03/18/21 12:06 98.1 F 03/18/21 12:00 84 27 H 03/18/21 11:00 27 H - Physical Examination General: Cachectic HEENT: Positive: PERRL, EOMI Neck: Positive: neck supple Cardiac: Positive: Reg Rate and Rhythm Lungs: Positive: Decreased Breath Sounds Neuro: Positive: Grossly Intact Abdomen: Positive: Soft Extremities: Present: normal. Absent: edema - Labs and Meds Cardiac Enzymes 03/19/21 Range/Units 04:25 AST 43 H (5-40) units/L Coagulation 03/18/21 03/19/21 Range/Units 10:38 04:25 PT 15.6 H 16.9 H (12.2-14.9) Sec. INR 1.18 H 1.31 H (0.87-1.13) APTT 47.9 H (24.2-36.6) Sec. CBC 03/18/21 03/19/21 Range/Units 10:38 04:25 WBC 6.7 4.5 (4.5-11.0) K/mm3 RBC 3.75 3.67 (3.65-5.03) M/mm3 Hgb 12.1 11.8 (11.8-15.2) gm/dl Hct 34.4 L D 33.9 L (35.5-45.6) % Plt Count 238 213 (140-440) K/mm3 Lymph # (Auto) 0.5 L (1.2-5.4) K/mm3 [place] # (Auto) 0.4 (0.0-0.8) K/mm3 Eos # (Auto) 0.3 (0.0-0.4) K/mm3 Baso # (Auto) 0.0 (0.0-0.1) K/mm3 Comprehensive Metabolic Panel 03/18/21 03/19/21 03/19/21 Range/Units 10:38 04:25 04:25 Sodium 144 (137-145) mmol/L Potassium 4.3 (3.6-5.0) mmol/L Chloride 109.3 H (98-107) mmol/L Carbon Dioxide 26 (22-30) mmol/L BUN 29 H (9-20) mg/dL Creatinine 1.6 H 1.4 H (0.8-1.3) mg/dL Glucose 81 (75-100) mg/dL Calcium 8.9 (8.4-10.2) mg/dL Direct Bilirubin < 0.2 (0-0.2) mg/dL Indirect Bilirubin 0.2 mg/dL AST 43 H (5-40) units/L ALT 62 H (7-56) units/L Alkaline Phosphatase 212 H (35-129) units/L Total Protein 5.9 L (6.3-8.2) g/dL Albumin 3.5 L (3.9-5) g/dL - Imaging and Cardiology Echo: pending - Telemetry EKG Rhythm: Atrial Fibrillation
[2021-03-19] MEDS: ARFORMOTEROL 15 MCG/2 ML NEBU IH SCH ×2 (13:03→20:54)
[2021-03-19] MEDS: BUDESONIDE 0.5 MG/2 ML NEBU IH SCH ×2 (13:04→20:54)
[2021-03-19] MEDS ORDERED: hydrALAZINE 20 MG/1 ML INJ IV PRN (15:37)
--- NOTE | 2021-03-19 17:00 | Progress Note ---
Assessment and Plan Atrial fibrillation with RVR Acute on chronic hypoxemic respiratory failure Syncopal episode Acute kidney injury Non-ST elevation myocardial infarction PUI COVID-19 infection Adult failure to thrive Elevated serum transaminase Possible urinary tract infection - rate & rhythm control per cardiology recommendations - continue to wean supplemental oxygen to keep O2 sats > 90% - continue bronchodilators (DARRIUS & LABA) with pulm hygiene per RT - continue inhaled corticosteroids - continue to avoid nephrotoxins, renally dose all medications - continue mobility protocols to prevent pressure ulcers - PT/OT as tolerated - Wound care per RN/WCT - continue accuchecks with glycemic control per SSI for target blood glucose < 180 mg/dL - home oxygen evaluation at discharge - GI & VTE prophylaxis - Flu & pneumovax per protocol - Pulmonary out patient follow up for PFTs and optimization of respiratory status - continue other care per attending / other consultants - prn analgesia per pain score ... re-evaluate in am & prn Subjective Date of service: 03/19/21 Principal diagnosis: Atrial fibrillation with RVR, syncope Interval history: Patient is seen today for: Atrial fibrillation with RVR; Acute on chronic hypoxemic respiratory failure; Syncopal episode; JUAN DANIEL; NSTEMI; PUI COVID-19 infection Seen and examined at bedside; 24hour events reviewed; nursing and respiratory care staff consulted; no adverse overnight events reported to me; resting in bed; Objective Vital Signs - 12hr 03/19/21 03/19/21 03/19/21 06:47 07:50 08:00 Temperature Pulse Rate 84 77 Respiratory 33 H 26 H Rate Blood Pressure 164/97 146/56 146/56 O2 Sat by Pulse 99 100 Oximetry 03/19/21 03/19/21 03/19/21 08:10 08:20 08:30 Temperature Pulse Rate 69 71 87 Respiratory 23 22 28 H Rate Blood Pressure 154/65 154/65 154/65 O2 Sat by Pulse 100 100 99 Oximetry 03/19/21 03/19/21 03/19/21 08:40 08:50 09:00 Temperature Pulse Rate 74 74 Respiratory 23 32 H 24 Rate Blood Pressure 154/65 154/65 148/92 O2 Sat by Pulse 100 99 83 L Oximetry 03/19/21 03/19/21 03/19/21 09:10 09:20 09:27 Temperature 98.2 F Pulse Rate 63 64 Respiratory 26 H 24 Rate Blood Pressure 148/92 148/92 O2 Sat by Pulse 100 100 Oximetry 03/19/21 03/19/21 03/19/21 09:30 09:40 09:50 Temperature Pulse Rate 68 64 66 Respiratory 26 H 24 21 Rate Blood Pressure 148/92 148/92 148/92 O2 Sat by Pulse 100 96 100 Oximetry 03/19/21 03/19/21 03/19/21 10:00 10:10 10:20 Temperature Pulse Rate 64 63 64 Respiratory 18 23 23 Rate Blood Pressure 148/92 151/51 151/51 O2 Sat by Pulse 100 100 100 Oximetry 03/19/21 03/19/21 03/19/21 10:30 10:40 10:50 Temperature Pulse Rate 66 68 78 Respiratory 24 24 22 Rate Blood Pressure 151/51 151/51 151/51 O2 Sat by Pulse 100 99 94 Oximetry 03/19/21 03/19/21 03/19/21 11:00 11:10 11:20 Temperature Pulse Rate 80 86 84 Respiratory 21 22 15 Rate Blood Pressure 151/51 O2 Sat by Pulse 99 90 96 Oximetry 03/19/21 03/19/21 03/19/21 11:30 11:40 11:50 Temperature Pulse Rate 81 79 84 Respiratory 24 23 27 H Rate Blood Pressure O2 Sat by Pulse 99 100 Oximetry 03/19/21 03/19/21 03/19/21 12:00 12:10 12:20 Temperature Pulse Rate 79 83 86 Respiratory 25 H 28 H 26 H Rate Blood Pressure 178/71 178/71 O2 Sat by Pulse Oximetry 03/19/21 03/19/21 03/19/21 12:23 12:30 12:40 Temperature Pulse Rate 83 81 100 H Respiratory 27 H 28 H Rate Blood Pressure 178/71 178/71 O2 Sat by Pulse 100 98 Oximetry 03/19/21 03/19/21 03/19/21 12:50 13:00 13:10 Temperature Pulse Rate 80 89 79 Respiratory 27 H 26 H 26 H Rate Blood Pressure 178/71 175/73 175/73 O2 Sat by Pulse 100 99 99 Oximetry 03/19/21 03/19/21 03/19/21 13:16 13:20 13:30 Temperature 98.2 F Pulse Rate 86 85 Respiratory 30 H 31 H Rate Blood Pressure 175/73 175/73 O2 Sat by Pulse 97 95 Oximetry 03/19/21 03/19/21 03/19/21 13:40 13:50 14:00 Temperature Pulse Rate 84 81 80 Respiratory 24 25 H 23 Rate Blood Pressure 175/73 175/73 175/75 O2 Sat by Pulse 100 100 100 Oximetry 03/19/21 03/19/21 03/19/21 14:10 14:20 14:30 Temperature Pulse Rate 81 81 85 Respiratory 25 H 25 H 28 H Rate Blood Pressure 173/63 176/64 176/64 O2 Sat by Pulse 100 100 99 Oximetry 03/19/21 03/19/21 03/19/21 14:40 14:50 15:00 Temperature Pulse Rate 79 78 84 Respiratory 24 23 24 Rate Blood Pressure 176/64 176/64 176/64 O2 Sat by Pulse 100 100 99 Oximetry 03/19/21 03/19/21 03/19/21 15:10 15:20 15:30 Temperature Pulse Rate 78 79 77 Respiratory 24 25 H 24 Rate Blood Pressure 176/70 188/69 188/69 O2 Sat by Pulse 100 100 100 Oximetry 03/19/21 03/19/21 03/19/21 15:40 15:44 15:50 Temperature Pulse Rate 78 88 83 Respiratory 24 25 H Rate Blood Pressure 188/69 188/69 188/69 O2 Sat by Pulse 99 100 Oximetry 03/19/21 03/19/21 16:00 16:24 Temperature Pulse Rate 89 Respiratory 26 H Rate Blood Pressure 188/69 142/64 O2 Sat by Pulse 99 Oximetry CBC and BMP: 03/19/21 04:25 03/19/21 04:25 ABG, PT/INR, D-dimer: PT/INR, D-dimer PT 16.9 Sec. (12.2-14.9) H 03/19/21 04:25 INR 1.31 (0.87-1.13) H 03/19/21 04:25 D-Dimer 7891.50 ng/mlDDU (0-234) H 03/17/21 19:21 Abnormal lab findings: Abnormal Labs 03/17/21 03/17/21 03/17/21 18:51 19:21 19:21 Hct MCHC Lymph % (Auto) 7.7 L [place] % (Auto) Eos % (Auto) Lymph # (Auto) 0.7 L Seg Neutrophils % 81.1 H PT 16.0 H INR 1.22 H APTT D-Dimer 7891.50 H Heparin Anti-Xa Level Chloride BUN Creatinine Glucose POC Glucose 125 H Magnesium Ferritin AST ALT Alkaline Phosphatase Lactate Dehydrogenase Troponin T NT-Pro-B Natriuret Pep Total Protein Albumin HDL Cholesterol Ur Specific [place] Urine WBC (Auto) 03/17/21 03/17/21 03/17/21 19:21 19:21 19:21 Hct MCHC Lymph % (Auto) [place] % (Auto) Eos % (Auto) Lymph # (Auto) Seg Neutrophils % PT INR APTT D-Dimer Heparin Anti-Xa Level Chloride BUN 31 H Creatinine 2.0 H Glucose 114 H 115 H POC Glucose Magnesium 2.40 H Ferritin 340.1 H AST ALT 65 H Alkaline Phosphatase 223 H Lactate Dehydrogenase 201 H Troponin T NT-Pro-B Natriuret Pep 1299 H Total Protein Albumin HDL Cholesterol Ur Specific [place] Urine WBC (Auto) 03/17/21 03/17/21 03/18/21 19:21 23:56 10:38 Hct MCHC Lymph % (Auto) [place] % (Auto) Eos % (Auto) Lymph # (Auto) Seg Neutrophils % PT 15.6 H INR 1.18 H APTT 47.9 H D-Dimer Heparin Anti-Xa Level 0.23 L Chloride BUN Creatinine Glucose POC Glucose Magnesium Ferritin 337.1 H AST ALT Alkaline Phosphatase Lactate Dehydrogenase Troponin T 0.032 H NT-Pro-B Natriuret Pep Total Protein Albumin HDL Cholesterol 28 L Ur Specific [place] Urine WBC (Auto) 03/18/21 03/18/21 03/18/21 10:38 10:38 13:30 Hct 34.4 L D MCHC 35 H Lymph % (Auto) [place] % (Auto) Eos % (Auto) Lymph # (Auto) Seg Neutrophils % PT INR APTT D-Dimer Heparin Anti-Xa Level Chloride BUN Creatinine 1.6 H Glucose POC Glucose Magnesium Ferritin AST ALT Alkaline Phosphatase Lactate Dehydrogenase Troponin T NT-Pro-B Natriuret Pep Total Protein Albumin HDL Cholesterol Ur Specific [place] 1.044 H Urine WBC (Auto) 10.0 H 03/19/21 03/19/21 03/19/21 04:25 04:25 04:25 Hct 33.9 L MCHC 35 H Lymph % (Auto) 12.3 L [place] % (Auto) 9.9 H Eos % (Auto) 6.0 H Lymph # (Auto) 0.5 L Seg Neutrophils % 71.6 H PT 16.9 H INR 1.31 H APTT D-Dimer Heparin Anti-Xa Level Chloride 109.3 H BUN 29 H Creatinine 1.4 H Glucose POC Glucose Magnesium Ferritin AST ALT Alkaline Phosphatase Lactate Dehydrogenase Troponin T NT-Pro-B Natriuret Pep Total Protein Albumin HDL Cholesterol Ur Specific [place] Urine WBC (Auto) 03/19/21 04:25 Hct MCHC Lymph % (Auto) [place] % (Auto) Eos % (Auto) Lymph # (Auto) Seg Neutrophils % PT INR APTT D-Dimer Heparin Anti-Xa Level Chloride BUN Creatinine Glucose POC Glucose Magnesium Ferritin AST 43 H ALT 62 H Alkaline Phosphatase 212 H Lactate Dehydrogenase Troponin T NT-Pro-B Natriuret Pep Total Protein 5.9 L Albumin 3.5 L HDL Cholesterol Ur Specific [place] Urine WBC (Auto)
--- NOTE | 2021-03-19 17:13 | Gastroenterology Progress Note ---
Assessment and Plan 1. Liver: increase lft's after hypotension and syncope - lft's improving - awaiting other hepatitis serologies - advance diet - ok to dc from GI standpoint as further worlup can be done as outpt - will follow for now Subjective Date of service: 03/19/21 Principal diagnosis: Atrial fibrillation with RVR, syncope Interval history: - no GI complaints overnight Objective - Constitutional Vitals: Temp Pulse Resp BP Pulse Ox 98.4 F 85 18 137/54 96 03/19/21 16:32 03/19/21 16:32 03/19/21 16:32 03/19/21 16:32 03/19/21 16:32 General appearance: no acute distress - EENT Eyes: PERRL - Respiratory Respiratory: bilateral: CTA - Cardiovascular Rhythm: regular Heart Sounds: Present: S1 & S2 - Gastrointestinal General gastrointestinal: Present: soft, non-tender, non-distended - Labs CBC & Chem 7: 03/19/21 04:25 03/19/21 04:25 Labs: Laboratory Results - last 24 hr 03/19/21 03/19/21 03/19/21 04:25 04:25 04:25 WBC 4.5 RBC 3.67 Hgb 11.8 Hct 33.9 L MCV 93 MCH 32 MCHC 35 H RDW 14.5 Plt Count 213 Lymph % (Auto) 12.3 L [place] % (Auto) 9.9 H Eos % (Auto) 6.0 H Baso % (Auto) 0.2 Lymph # (Auto) 0.5 L [place] # (Auto) 0.4 Eos # (Auto) 0.3 Baso # (Auto) 0.0 Seg Neutrophils % 71.6 H Seg Neutrophils # 3.2 PT 16.9 H INR 1.31 H Sodium 144 Potassium 4.3 Chloride 109.3 H Carbon Dioxide 26 Anion Gap 13 BUN 29 H Creatinine 1.4 H Estimated GFR 60 BUN/Creatinine Ratio 21 Glucose 81 Calcium 8.9 Total Bilirubin Direct Bilirubin Indirect Bilirubin AST ALT Alkaline Phosphatase Total Protein Albumin Albumin/Globulin Ratio TSH 03/19/21 03/19/21 04:25 04:25 WBC RBC Hgb Hct MCV MCH MCHC RDW Plt Count Lymph % (Auto) [place] % (Auto) Eos % (Auto) Baso % (Auto) Lymph # (Auto) [place] # (Auto) Eos # (Auto) Baso # (Auto) Seg Neutrophils % Seg Neutrophils # PT INR Sodium Potassium Chloride Carbon Dioxide Anion Gap BUN Creatinine Estimated GFR BUN/Creatinine Ratio Glucose Calcium Total Bilirubin 0.40 Direct Bilirubin < 0.2 Indirect Bilirubin 0.2 AST 43 H ALT 62 H Alkaline Phosphatase 212 H Total Protein 5.9 L Albumin 3.5 L Albumin/Globulin Ratio 1.5 TSH 0.720
[2021-03-20] MEDS: dilTIAZem 30 MG TAB PO SCH ×4 (01:26→22:50)
[2021-03-20 03:25] LABS: Hematocrit 34.5 % (35.5-45.6); Hemoglobin 12.2 gm/dl (11.8-15.2); Mean Corpuscular HGB Conc 35 % (32-34); Mean Corpuscular Volume 92 fl (84-94); Platelet Count 213 K/mm3 (140-440); Red Blood Count 3.77 M/mm3 (3.65-5.03); Red Cell Distribution Width 14.5 % (13.2-15.2)
[2021-03-20 03:52] LABS: Alanine Aminotransferase 41 units/L (7-56); Albumin 3.5 g/dL (3.9-5); BUN/Creatinine Ratio 20; Blood Urea Nitrogen 26 mg/dL (9-20); Calcium 8.8 mg/dL (8.4-10.2); Hemolysis Index 0
[2021-03-20 04:21] LABS: Bilirubin,Direct < 0.2 mg/dL (0-0.2)
[2021-03-20] MEDS ORDERED: IPRATROPIUM/ALBUTEROL SULFATE 3 ML AMPUL.NEB IH PRN (06:51)
--- NOTE | 2021-03-20 06:54 | Progress Note ---
Assessment and Plan - Patient Problems (1) Acute respiratory failure with hypoxia Current Visit: Yes Status: Acute Plan to address problem: Secondary to underlying COPD Improved from high flow nasal cannula oxygen to 5 L nasal cannula oxygen Changed to 2 L nasal cannula oxygen today Follow-up on oxygen requirements and possible discharge with home oxygen May not need home oxygen if patient can do well on room air [facility] determination was that it does not need home oxygen (2) COPD exacerbation Current Visit: Yes Status: Acute Plan to address problem: Continue duo nebs and Solu-Medrol and antibiotics (3) Atrial fibrillation with RVR Current Visit: Yes Status: Acute Plan to address problem: Controlled (4) Elevated troponin Current Visit: Yes Status: Chronic Plan to address problem: Nonspecific (5) New onset a-fib Current Visit: Yes Status: Acute Plan to address problem: Patient initiated on Eliquis and Cardizem (6) Suspected 2019 novel coronavirus infection Current Visit: Yes Status: Acute Plan to address problem: Coronavirus pcr negative (7) Syncope Current Visit: Yes Status: Acute Qualifiers: Syncope type: vasovagal syncope Qualified Code(s): R55 - Syncope and collapse Plan to address problem: Secondary to A. fib and respiratory failure (8) DVT prophylaxis Current Visit: Yes Status: Acute Plan to address problem: On Eliquis and GI prophylaxis Subjective Date of service: 03/20/21 Principal diagnosis: Atrial fibrillation with RVR, syncope, COPD exacerbation Interval history: 75-year-old male with known history of hypertension, asthma and COPD brought into the emergency room by EMS after having a syncopal episode and a ground- level fall. Patient indicates that he was walking and suddenly had lightheadedness and collapsed. He woke up while on the floor and denies any headache and denies any head injury. He however states that he bumped his right elbow and had some abrasions. Patient denies any chest pain or shortness of breath, no nausea vomiting, no abdominal pain, no fever or chills, denies any headache prior to this episode. Upon arrival of EMS blood pressure was said to be low with systolic in the 90s and diastolic in the 40s. Was given a bolus of IV fluid normal saline 1 L with significant improvement of his blood pressure. Upon arrival in the emergency room patient was found to be in A. fib with RVR and subsequently started on Cardizem drip. Work-up in the emergency room today significant findings were: Chemistry elevated ALT of 65, BNP of 1000 299, elevated D-dimer of 7891. BUN a nd creatinine were [address] angiogram reveals no pulmonary embolism and no acute findings on the chest. There is nonspecific biliary ductal dilatation greater than expected for pat ient's age. CT of the cervical spine shows moderate to severe cervical spondylosis. CT of the lumbar spine shows no acute abnormality. Patient has been admitted with syncope, A. fib with RVR and JUAN DANIEL. 03/19/2021 Heart rate is improved to 60s but irregular Alert and responsive Wheezing present 03/20/2021 Patient was on high flow oxygen yesterday Today the patient is on 5 L nasal cannula oxygen Oxygen decreased to 2 L nasal cannula oxygen Patient says that he has oxygen at home but the [facility] Objective - Constitutional Vitals: Vital Signs - 12hr 03/19/21 03/19/21 03/19/21 19:00 19:10 19:20 Temperature Pulse Rate 105 H 103 H 100 H Pulse Rate [ Anterior Bilateral Throughout] Respiratory 44 H 32 H 31 H Rate Respiratory Rate [Anterior Bilateral Throughout] Blood Pressure 149/101 149/101 149/101 Blood Pressure [Left] O2 Sat by Pulse 91 89 98 Oximetry 03/19/21 03/19/21 03/19/21 19:30 19:40 19:50 Temperature Pulse Rate 97 H 105 H 98 H Pulse Rate [ Anterior Bilateral Throughout] Respiratory 29 H 31 H 33 H Rate Respiratory Rate [Anterior Bilateral Throughout] Blood Pressure 142/64 142/64 142/64 Blood Pressure [Left] O2 Sat by Pulse 98 99 99 Oximetry 03/19/21 03/19/21 03/19/21 20:00 20:10 20:20 Temperature Pulse Rate 97 H 100 H 100 H Pulse Rate [ Anterior Bilateral Throughout] Respiratory 24 28 H 26 H Rate Respiratory Rate [Anterior Bilateral Throughout] Blood Pressure 142/64 159/99 159/99 Blood Pressure [Left] O2 Sat by Pulse 100 100 99 Oximetry 03/19/21 03/19/21 03/19/21 20:24 20:30 20:40 Temperature 98.1 F Pulse Rate 100 H 101 H Pulse Rate [ Anterior Bilateral Throughout] Respiratory 22 27 H 49 H Rate Respiratory Rate [Anterior Bilateral Throughout] Blood Pressure 153/57 159/99 159/99 Blood Pressure [Left] O2 Sat by Pulse 100 99 Oximetry 03/19/21 03/19/21 03/19/21 20:46 20:50 20:59 Temperature Pulse Rate 103 H 102 H Pulse Rate [ 83 Anterior Bilateral Throughout] Respiratory 28 H 24 Rate Respiratory 20 Rate [Anterior Bilateral Throughout] Blood Pressure 159/99 159/99 Blood Pressure [Left] O2 Sat by Pulse 100 99 98 Oximetry 03/19/21 03/20/21 03/20/21 23:10 01:20 01:26 Temperature 98.2 F Pulse Rate 77 83 83 Pulse Rate [ Anterior Bilateral Throughout] Respiratory 24 Rate Respiratory Rate [Anterior Bilateral Throughout] Blood Pressure 155/59 Blood Pressure 155/59 [Left] O2 Sat by Pulse 97 Oximetry 03/20/21 03/20/21 03/20/21 02:00 04:00 04:35 Temperature 98.2 F Pulse Rate 84 89 Pulse Rate [ Anterior Bilateral Throughout] Respiratory 24 Rate Respiratory Rate [Anterior Bilateral Throughout] Blood Pressure 139/57 Blood Pressure [Left] O2 Sat by Pulse 97 97 Oximetry 03/20/21 05:32 Temperature Pulse Rate 89 Pulse Rate [ Anterior Bilateral Throughout] Respiratory Rate Respiratory Rate [Anterior Bilateral Throughout] Blood Pressure 139/57 Blood Pressure [Left] O2 Sat by Pulse Oximetry General appearance: Present: mild distress, well-nourished - EENT Eyes: PERRL, EOM intact ENT: hearing intact, clear oral mucosa Ears: bilateral: normal - Neck Neck: supple, normal ROM - Respiratory Respiratory effort: normal Respiratory: bilateral: CTA, rhonchi, wheezing - Breasts Breasts: normal - Cardiovascular Heart rate: 76 Rhythm: regular Heart Sounds: Present: S1 & S2. Absent: gallop, rub Extremities: pulses intact, No edema, normal color, Full ROM - Gastrointestinal General gastrointestinal: Present: soft, non-tender, non-distended, normal bowel sounds - Genitourinary Male genitourinary: normal - Integumentary Integumentary: clear, warm, dry - Musculoskeletal Musculoskeletal: 1, strength equal bilaterally - Neurologic Neurologic: moves all extremities - Psychiatric Psychiatric: memory intact, appropriate mood/affect, intact judgment & insight - Labs CBC & Chem 7: 03/20/21 03:12 03/21/21 05:15 Labs: Abnormal lab results 03/20/21 03/20/21 Range/Units 03:12 03:12 Hct 34.5 L (35.5-45.6) % MCHC 35 H (32-34) % BUN 26 H (9-20) mg/dL Alkaline Phosphatase 188 H (35-129) units/L Total Protein 5.9 L (6.3-8.2) g/dL Albumin 3.5 L (3.9-5) g/dL HEART Score - HEART Score Troponin: Troponin T 0.028 ng/mL (0.00-0.029) 03/18/21 06:28
[2021-03-20] MEDS: ARFORMOTEROL 15 MCG/2 ML NEBU IH SCH ×2 (07:50→20:42)
[2021-03-20] MEDS: IPRATROPIUM/ALBUTEROL SULFATE 3 ML AMPUL.NEB IH SCH ×4 (07:50→20:42)
[2021-03-20] MEDS: BUDESONIDE 0.5 MG/2 ML NEBU IH SCH ×2 (07:50→20:42)
[2021-03-20] MEDS ORDERED: ALBUTEROL 2.5 MG/3 ML NEBU IH PRN (08:00)
[2021-03-20] MEDS: methylPREDNISolone Sod Succinate 125 MG/2 ML INJ IV SCH ×3 (08:17→22:50)
[2021-03-20] MEDS: FAMOTIDINE 20 MG TAB PO SCH (10:26)
[2021-03-20] MEDS: APIXABAN 2.5 MG TAB PO SCH (10:26)
--- NOTE | 2021-03-20 11:03 | Progress Note ---
Assessment and Plan Chronic Afib * Patient rate is controlled * Increase Eliquis 5mg BID Acute hypoxic respiratory failure * Patient is on high flow oxygen * Managed by primary team HTN * Increase diltiazem to 60mg PO TID NSTEMI TypeII * May consider ischemic eval once respiratory status is stable * Echo 03/18/2021- EF 50-55%, normal left ventricular wall thickness, right and left atria are normal size, mitral valve leaflets are calcified. Patient seen in conjunction with Dr. Tong who agrees with this assessment and plan for care. - Patient Problems (1) JUAN DANIEL (acute kidney injury) Current Visit: Yes Status: Acute (2) Atrial fibrillation with RVR Current Visit: Yes Status: Acute (3) COPD exacerbation Current Visit: Yes Status: Acute (4) Chronic a-fib Current Visit: Yes Status: Acute (5) Syncope Current Visit: Yes Status: Acute Qualifiers: Syncope type: vasovagal syncope Qualified Code(s): R55 - Syncope and col lapse Subjective Date of service: 03/20/21 Principal diagnosis: Atrial fibrillation with RVR, syncope, COPD exacerbation Interval history: Patient resting in bed with no complaints [id number] with no events on monitor Objective Last Vital Signs Temp 97.9 F 03/20/21 08:01 Pulse 72 03/20/21 08:01 Resp 19 03/20/21 08:01 BP 147/52 03/20/21 08:01 Pulse Ox 99 03/20/21 08:01 - Physical Examination General: No Apparent Distress, Cachectic HEENT: Positive: PERRL, EOMI Neck: Positive: neck supple Cardiac: Positive: irregularly irregular Lungs: Positive: Normal Breath Sounds Neuro: Positive: Grossly Intact Abdomen: Positive: Soft Extremities: Present: normal. Absent: edema - Labs and Meds Cardiac Enzymes 03/20/21 Range/Units 03:12 AST 20 (5-40) units/L CBC 03/20/21 Range/Units 03:12 WBC 5.3 (4.5-11.0) K/mm3 RBC 3.77 (3.65-5.03) M/mm3 Hgb 12.2 (11.8-15.2) gm/dl Hct 34.5 L (35.5-45.6) % Plt Count 213 (140-440) K/mm3 Comprehensive Metabolic Panel 07/26/21 Range/Units 03:12 Sodium 141 (137-145) mmol/L Potassium 4.3 (3.6-5.0) mmol/L Chloride 106.0 (98-107) mmol/L Carbon Dioxide 25 (22-30) mmol/L BUN 26 H (9-20) mg/dL Creatinine 1.3 (0.8-1.3) mg/dL Glucose 92 (75-100) mg/dL Calcium 8.8 (8.4-10.2) mg/dL Direct Bilirubin < 0.2 (0-0.2) mg/dL Indirect Bilirubin 0.2 mg/dL AST 20 (5-40) units/L ALT 41 (7-56) units/L Alkaline Phosphatase 188 H (35-129) units/L Total Protein 5.9 L (6.3-8.2) g/dL Albumin 3.5 L (3.9-5) g/dL - Imaging and Cardiology Echo: pending - Telemetry EKG Rhythm: Atrial Fibrillation - EKG Supraventricular dysrhythmia: atrial fibrillation
--- NOTE | 2021-03-20 11:45 | Electrocardiograph Report ---
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
--- NOTE | 2021-03-20 12:56 | Progress Note ---
Assessment and Plan Cultures: 03/18/2021 urine culture: In process COVID-19 PCR: Negative Assessment: 75-year-old male with history of hypertension, asthma, COPD, admitted on 03/17/2021 secondary to syncopal episode and a ground-level fall: #SIRS rule out sepsis: Patient was found RVR A. fib. Chest x-ray unremarkable. CTA no consolidations, no PE. Urinalysis without significant pyuria. #Acute COPD exacerbation with respiratory failure #Elevated LFTs: Mild. CT showed nonspecific extra hepatic and intrahepatic ductal dilation. #RVR A. fib: Management per cardiology #Elevated D-dimer: CTA no pulmonary embolism. #JUAN DANIEL: Likely secondary to severe hypotension. Recommendations: -Continue off antibiotics -COVID-19 PCR is negative ID will sign off. Please call with questions. Tory Mixon MD, FACP [facility] ([facility]) O: [phone] F: [phone] Subjective Date of service: 03/20/21 Principal diagnosis: Atrial fibrillation with RVR, syncope, COPD exacerbation Interval history: Afebrile. On high flow nasal cannula. COVID-19 PCR came back negative. Objective - Exam Narrative Exam: Physical Exam: Constitutional: Alert, cooperative. No acute distress. Cachexia Head, Ears, Nose: Normocephalic, atraumatic. External ears, nose normal Eyes: Conjunctivae/corneas clear. No icterus. No ptosis. Neck: Supple, no meningeal signs Cardiovascular: S1, S2 normal. Respiratory: Air entry reduced bilaterally, wheezes present GI: Soft, non-tender; bowel sounds normal. No peritoneal signs Musculoskeletal: No pedal edema, no cyanosis. Skin: No rash or abscess Hem/Lymphatic: No palpable cervical or supraclavicular nodes. No lymphangitis Psych: Mood ok. Affect normal Neurological: Awake, alert, oriented. No gross abnormality - Constitutional Vitals: Vital Signs Temp Pulse Resp BP Pulse Ox 97.9 F 72 19 147/52 99 03/20/21 08:01 03/20/21 08:01 03/20/21 08:01 03/20/21 08:01 03/20/21 08:01 Temperature -Last 24 Hours Temperature 97.9 F Temperature 98.2 F Temperature 98.2 F Temperature 98.1 F Temperature 98.4 F Temperature 98.2 F - Labs CBC & Chem 7: 03/20/21 03:12 03/20/21 03:12 Labs: Abnormal lab results 03/20/21 03/20/21 Range/Units 03:12 03:12 Hct 34.5 L (35.5-45.6) % MCHC 35 H (32-34) % BUN 26 H (9-20) mg/dL Alkaline Phosphatase 188 H (35-129) units/L Total Protein 5.9 L (6.3-8.2) g/dL Albumin 3.5 L (3.9-5) g/dL
--- NOTE | 2021-03-20 14:37 | Progress Note ---
Assessment and Plan 75-year-old male with history of hypertension, asthma, and COPD is brought in by EMS after a syncopal episode and ground-level fall. The patient states that he was walking when he suddenly experienced lightheadedness and blacked out. He woke up and he was on the floor. He says he did not hit his head but that he only bumped his right elbow. He denies any preceding chest pain, shortness of breath, palpitations, sweating, or any other symptoms other than lightheadedness. He does say that for the past 3 days he has not been eating well and has not been feeling well. According to the EMS report, the patient's initial blood pressure was 92/46. He was given 1 L of IV fluids which improved his blood pressure to 142/65. His heart rate was in the 100s to 110s. The patient states he has no complaints at this time. He is not vaccinated against COVID-19. He denies any headache, vision change, neck pain, back pain, chest pain, palpitations, abdominal pain, nausea/vomiting, dysuria, focal weakness, sensory changes, vertigo, or any other complaints. He says his right elbow was only bumped and he has no significant pain there. Patient has heavy history of smoking. Still smoking. Counseled to stop smoking. Denies alcohol or drug abuse. No further history available at this time. Patient awake. Weak. Patient is on Vapotherm, FIO2 100%. O2 saturation 100%. Denies shortness of breath or cough. Patient afebrile. No leukocytosis. Chest xray done 03/16/21 Lungs are hyperexpanded. Chronic interstitial change No pneumothorax. Nodular density projects overlying left lung however this is a crossing ribs. Follow-up chest x-ray recommended. Patient has Angio CT of chest 03/17/[address] evidence for pulmonary embolism. No acute findings in the chest. Nonspecific biliary ductal dilatation is greater than expected for the patient's age. Patient is on I/V solumedrol, Albuterol/atrovent aerosol treatments,Apixaban, Levaquin and famotidine. I spent critical care time of 37 minutes on this patient, reviewing the chart, obtaining history, examine the patient, review xrays, review labs, talking to the nursing staff and respiratory therapy and work out plan of treatment. - Patient Problems (1) Acute respiratory failure with hypoxia Current Visit: Yes Status: Acute Plan to address problem: Patient is on Vapotherm 100%. Albuterol/atrovent aerosol treatments. Continue I/V solumedrol. Continue Apixaban Continue famotidine. Continue levaquin ABGs on O2. (2) COPD exacerbation Current Visit: Yes Status: Acute Plan to address problem: Patient is on Vapotherm 100%. Albuterol/atrovent aerosol treatments. Continue I/V solumedrol. Continue Apixaban Continue famotidine. Continue levaquin ABGs on O2. (3) Atrial fibrillation with RVR Current Visit: Yes Status: Acute Plan to address problem: Patient is on Apixaban. Management as per cardiology. (4) Suspected 2019 novel coronavirus infection Current Visit: Yes Status: Acute Plan to address problem: [place] virus PCR negative. (5) JUAN DANIEL (acute kidney injury) Current Visit: Yes Status: Acute Plan to address problem: Management as per nephrology. (6) Concussion Current Visit: Yes Status: Acute Plan to address problem: Management as per neurology. (7) Elevated troponin Current Visit: Yes Status: Chronic Plan to address problem: Management as per cardiology. (8) NSTEMI (non-ST elevated myocardial infarction) Current Visit: Yes Status: Acute Plan to address problem: Management as per cardiology. (9) Syncope Current Visit: Yes Status: Acute Qualifiers: Syncope type: vasovagal syncope Qualified Code(s): R55 - Syncope and collapse Plan to address problem: Management as per nephrology. Subjective Date of service: 03/20/21 Principal diagnosis: Atrial fibrillation with RVR, syncope, COPD exacerbation Interval history: 75-year-old male with history of hypertension, asthma, and COPD is brought in by EMS after a syncopal episode and ground-level fall. The patient states that he was walking when he suddenly experienced lightheadedness and blacked out. He woke up and he was on the floor. He says he did not hit his head but that he only bumped his right elbow. He denies any preceding chest pain, shortness of breath, palpitations, sweating, or any other symptoms other than lightheadedness. He does say that for the past 3 days he has not been eating well and has not been feeling well. According to the EMS report, the patient's initial blood pressure was 92/46. He was given 1 L of IV fluids which improved his blood pressure to 142/65. His heart rate was in the 100s to 110s. The patient states he has no complaints at this time. He is not vaccinated against COVID-19. He denies any headache, vision change, neck pain, back pain, chest pain, palpitations, abdominal pain, nausea/vomiting, dysuria, focal weakness, sensory changes, vertigo, or any other complaints. He says his right elbow was only bumped and he has no significant pain there. Patient has heavy history of smoking. Still smoking. Counseled to stop smoking. Denies alcohol or drug abuse. No further history available at this time. Patient awake. Weak. Patient is on Vapotherm, FIO2 100%. O2 saturation 100%. Denies shortness of breath or cough. Patient afebrile. No leukocytosis. Chest xray done 03/16/21 Lungs are hyperexpanded. Chronic interstitial change No pneumothorax. Nodular density projects overlying left lung however this is a crossing ribs. Follow-up chest x-ray recommended. Patient has Angio CT of chest 03/17/[address] evidence for pulmonary embolism. No acute findings in the chest. Nonspecific biliary ductal dilatation is greater than expected for the patient's age. Patient is on I/V solumedrol, Albuterol/atrovent aerosol treatments,Apixaban, Levaquin and famotidine. Objective Vital Signs - 12hr 03/20/21 03/20/21 03/20/21 04:00 04:35 05:32 Temperature 98.2 F Pulse Rate 84 89 89 Pulse Rate [ Anterior Bilateral Throughout] Respiratory 24 Rate Respiratory Rate [Anterior Bilateral Throughout] Blood Pressure 139/57 139/57 O2 Sat by Pulse 97 Oximetry 03/20/21 03/20/21 03/20/21 07:50 07:51 08:01 Temperature 97.9 F Pulse Rate 74 72 Pulse Rate [ 80 Anterior Bilateral Throughout] Respiratory 19 Rate Respiratory 20 Rate [Anterior Bilateral Throughout] Blood Pressure 147/52 O2 Sat by Pulse 96 99 Oximetry 03/20/21 03/20/21 03/20/21 11:23 12:32 14:00 Temperature 98.3 F Pulse Rate 79 Pulse Rate [ 78 Anterior Bilateral Throughout] Respiratory 19 Rate Respiratory 20 Rate [Anterior Bilateral Throughout] Blood Pressure 161/60 O2 Sat by Pulse 98 99 Oximetry Constitutional: no acute distress, alert, other (Weak) Eyes: non-icteric ENT: oropharynx moist Neck: supple, no lymphadenopathy Effort: mildly labored Ascultation: Bilateral: diminished breath sounds, other (Prolonged expiratory phase.) Cardiovascular: irregular rhythm Gastrointestinal: normoactive bowel sounds, soft, non-tender Integumentary: normal Extremities: no cyanosis, no edema Neurologic: non-focal exam, pupils equal and round Psychiatric: depressed CBC and BMP: 03/20/21 03:12 03/21/21 05:15 ABG, PT/INR, D-dimer: PT/INR, D-dimer PT 16.9 Sec. (12.2-14.9) H 03/19/21 04:25 INR 1.31 (0.87-1.13) H 03/19/21 04:25 D-Dimer 7891.50 ng/mlDDU (0-234) H 03/17/21 19:21 Abnormal lab findings: Abnormal Labs 03/17/21 03/17/21 03/17/21 18:51 19:21 19:21 Hct MCHC Lymph % (Auto) 7.7 L [place] % (Auto) Eos % (Auto) Lymph # (Auto) 0.7 L Seg Neutrophils % 81.1 H PT 16.0 H INR 1.22 H APTT D-Dimer 7891.50 H Heparin Anti-Xa Level Chloride BUN Creatinine Glucose POC Glucose 125 H Magnesium Ferritin AST ALT Alkaline Phosphatase Lactate Dehydrogenase Troponin T NT-Pro-B Natriuret Pep Total Protein Albumin HDL Cholesterol Ur Specific [place] Urine WBC (Auto) 03/17/21 03/17/21 03/17/21 19:21 19:21 19:21 Hct MCHC Lymph % (Auto) [place] % (Auto) Eos % (Auto) Lymph # (Auto) Seg Neutrophils % PT INR APTT D-Dimer Heparin Anti-Xa Level Chloride BUN 31 H Creatinine 2.0 H Glucose 114 H 115 H POC Glucose Magnesium 2.40 H Ferritin 340.1 H AST ALT 65 H Alkaline Phosphatase 223 H Lactate Dehydrogenase 201 H Troponin T NT-Pro-B Natriuret Pep 1299 H Total Protein Albumin HDL Cholesterol Ur Specific [place] Urine WBC (Auto) 03/17/21 03/17/2121 19:21 23:56 10:38 Hct MCHC Lymph % (Auto) [place] % (Auto) Eos % (Auto) Lymph # (Auto) Seg Neutrophils % PT 15.6 H INR 1.18 H APTT 47.9 H D-Dimer Heparin Anti-Xa Level 0.23 L Chloride BUN Creatinine Glucose POC Glucose Magnesium Ferritin 337.1 H AST ALT Alkaline Phosphatase Lactate Dehydrogenase Troponin T 0.032 H NT-Pro-B Natriuret Pep Total Protein Albumin HDL Cholesterol 28 L Ur Specific [place] Urine WBC (Auto) 03/18/21 03/18/21 03/18/21 10:38 10:38 13:30 Hct 34.4 L D MCHC 35 H Lymph % (Auto) [place] % (Auto) Eos % (Auto) Lymph # (Auto) Seg Neutrophils % PT INR APTT D-Dimer Heparin Anti-Xa Level Chloride BUN Creatinine 1.6 H Glucose POC Glucose Magnesium Ferritin AST ALT Alkaline Phosphatase Lactate Dehydrogenase Troponin T NT-Pro-B Natriuret Pep Total Protein Albumin HDL Cholesterol Ur Specific [place] 1.044 H Urine WBC (Auto) 10.0 H 03/19/21 03/19/21 03/19/21 04:25 04:25 04:25 Hct 33.9 L MCHC 35 H Lymph % (Auto) 12.3 L [place] % (Auto) 9.9 H Eos % (Auto) 6.0 H Lymph # (Auto) 0.5 L Seg Neutrophils % 71.6 H PT 16.9 H INR 1.31 H APTT D-Dimer Heparin Anti-Xa Level Chloride 109.3 H BUN 29 H Creatinine 1.4 H Glucose POC Glucose Magnesium Ferritin AST ALT Alkaline Phosphatase Lactate Dehydrogenase Troponin T NT-Pro-B Natriuret Pep Total Protein Albumin HDL Cholesterol Ur Specific [place] Urine WBC (Auto) 03/19/21 03/20/21 03/20/21 04:25 03:12 03:12 Hct 34.5 L MCHC 35 H Lymph % (Auto) [place] % (Auto) Eos % (Auto) Lymph # (Auto) Seg Neutrophils % PT INR APTT D-Dimer Heparin Anti-Xa Level Chloride BUN 26 H Creatinine Glucose POC Glucose Magnesium Ferritin AST 43 H ALT 62 H Alkaline Phosphatase 212 H 188 H Lactate Dehydrogenase Troponin T NT-Pro-B Natriuret Pep Total Protein 5.9 L 5.9 L Albumin 3.5 L 3.5 L HDL Cholesterol Ur Specific [place] Urine WBC (Auto) Chest x-ray: report reviewed, image reviewed CT scan - chest: report reviewed, image reviewed Additional Studies: CHEST 2 VIEWS 03/17/21 INDICATION / CLINICAL INFORMATION: Chest Pain. COMPARISON: None available. FINDINGS: SUPPORT DEVICES: None. HEART / MEDIASTINUM: No significant abnormality. LUNGS / PLEURA: Lungs are hyperexpanded. Chronic interstitial change No pneumothorax. Nodular density projects overlying left lung however this is a crossing ribs. Follow-up chest x-ray recommended. Pelvis one view INDICATION: Pain FINDINGS: Degenerative changes in bilateral hips. Superior and inferior pubic rami appear intact. Degenerative change throughout spine CTA CHEST WITH IV CONTRAST 03/17/21 INDICATION: Syncope with collapse. Possible PE. TECHNIQUE: Axial CT images were obtained through the chest after injection of 60 cc Omnipaque 350 IV contrast. 3 plane MIP reconstructions were produced. All CT scans at this location are performed using CT dose reduction for ALARA by means of automated exposure control. COMPARISON: 2 views of the chest performed earlier today. FINDINGS: PULMONARY ARTERIES: No pulmonary emboli. AORTA AND ARTERIES: The thoracic aorta is normal in caliber with moderate generalized atherosclerosis. No other significant abnormality. HEART: No significant abnormality. MEDIASTINUM: No mass or lymphadenopathy. Nonobstructive secretions versus other aspirated material is seen along the trachea and main bronchi without other significant abnormalities. LUNGS: Moderate/severe emphysema is noted along the upper lobes predominantly with biapical scarring. No pneumothorax, pleural effusion or other significant abnormality. ADDITIONAL FINDINGS: None. UPPER ABDOMEN: There is moderate intrahepatic and extra hepatic biliary ductal station without visualization of the obstructive stone or mass. The common bile duct measures up to 12 mm. An infrarenal abdominal aortic aneurysm measures 5.1 x 5.0 cm on image 164 series 2, status post stent graft placement. No other acute findings. BONES: No acute findings. The bones are demineralized with moderate degenerative changes seen throughout the spine. IMPRESSION: 1. No CT evidence for pulmonary embolism. 2. No acute findings in the chest. 3. Nonspecific biliary ductal dilatation is greater than expected for the patient's age. Please correlate with the clinical findings. 4. Additional findings as above.
--- NOTE | 2021-03-20 15:34 | Gastroenterology Progress Note ---
Assessment and Plan GI: improving LFT's - continue follow labs - avoid hepatotoxic drugs - any further management ok as outpt - will sign off, call if needed Subjective Date of service: 03/20/21 Principal diagnosis: Atrial fibrillation with RVR, syncope, COPD exacerbation Interval history: - no GI issues overnight Objective - Constitutional Vitals: Temp Pulse Resp BP Pulse Ox 98.3 F 78 20 161/60 99 03/20/21 11:23 03/20/21 12:32 03/20/21 12:32 03/20/21 11:23 03/20/21 14:00 General appearance: no acute distress - EENT Eyes: PERRL - Respiratory Respiratory: bilateral: CTA - Cardiovascular Rhythm: regular Heart Sounds: Present: S1 & S2 - Gastrointestinal General gastrointestinal: Present: soft, non-tender, non-distended - Labs CBC & Chem 7: 03/20/21 03:12 03/20/21 03:12 Labs: Laboratory Results - last 24 hr 03/20/21 03/20/21 03:12 03:12 WBC 5.3 RBC 3.77 Hgb 12.2 Hct 34.5 L MCV 92 MCH 32 MCHC 35 H RDW 14.5 Plt Count 213 Sodium 141 Potassium 4.3 Chloride 106.0 Carbon Dioxide 25 Anion Gap 14 BUN 26 H Creatinine 1.3 Estimated GFR > 60 BUN/Creatinine Ratio 20 Glucose 92 Calcium 8.8 Total Bilirubin 0.40 Direct Bilirubin < 0.2 Indirect Bilirubin 0.2 AST 20 ALT 41 Alkaline Phosphatase 188 H Total Protein 5.9 L Albumin 3.5 L Albumin/Globulin Ratio 1.5
[2021-03-20] MEDS: APIXABAN 5 MG TAB PO SCH (22:50)
[2021-03-21] MEDS: methylPREDNISolone Sod Succinate 125 MG/2 ML INJ IV SCH ×2 (06:09→13:29)
[2021-03-21] MEDS: dilTIAZem 30 MG TAB PO SCH ×2 (06:09→13:29)
[2021-03-21] MEDS: FAMOTIDINE 20 MG TAB PO SCH (09:11)
[2021-03-21] MEDS: APIXABAN 5 MG TAB PO SCH (09:11)
[2021-03-21] MEDS: IPRATROPIUM/ALBUTEROL SULFATE 3 ML AMPUL.NEB IH SCH ×2 (09:19→14:13)
[2021-03-21] MEDS: ARFORMOTEROL 15 MCG/2 ML NEBU IH SCH (09:19)
[2021-03-21] MEDS: BUDESONIDE 0.5 MG/2 ML NEBU IH SCH (09:19)
--- NOTE | 2021-03-21 10:24 | Progress Note ---
Assessment and Plan Assessment and plan: - Patient Problems (1) Acute respiratory failure with hypoxia Current Visit: Yes Status: Acute Plan to address problem: Secondary to underlying COPD Improved from high flow nasal cannula oxygen to 5 L nasal cannula oxygen Changed to 2 L nasal cannula oxygen today Follow-up on oxygen requirements and possible discharge with home oxygen May not need home oxygen if patient can do well on room air [facility] determination was that it does not need home oxygen (2) COPD exacerbation Current Visit: Yes Status: Acute Plan to address problem: Continue duo nebs and Solu-Medrol and antibiotics (3) Atrial fibrillation with RVR Current Visit: Yes Status: Acute Plan to address problem: Controlled (4) Elevated troponin Current Visit: Yes Status: Chronic Plan to address problem: Nonspecific (5) New onset a-fib Current Visit: Yes Status: Acute Plan to address problem: Patient initiated on Eliquis and Cardizem (6) Suspected 2019 novel coronavirus infection Current Visit: Yes Status: Acute Plan to address problem: Coronavirus pcr negative (7) Syncope Current Visit: Yes Status: Acute Qualifiers: Syncope type: vasovagal syncope Qualified Code(s): R55 - Syncope and collapse Plan to address problem: Secondary to A. fib and respiratory failure (8) DVT prophylaxis Current Visit: Yes Status: Acute Plan to address problem: On Eliquis and GI prophylaxis Subjective Date of service: 03/20/21 Principal diagnosis: Atrial fibrillation with RVR, syncope, COPD exacerbation Interval history: 75-year-old male with known history of hypertension, asthma and COPD brought into the emergency room by EMS after having a syncopal episode and a ground- level fall. Patient indicates that he was walking and suddenly had lightheadedness and collapsed. He woke up while on the floor and denies any headache and denies any head injury. He however states that he bumped his right elbow and had some abrasions. Patient denies any chest pain or shortness of breath, no nausea vomiting, no abdominal pain, no fever or chills, denies any headache prior to this episode. Upon arrival of EMS blood pressure was said to be low with systolic in the 90s and diastolic in the 40s. Was given a bolus of IV fluid normal saline 1 L with significant improvement of his blood pressure. Upon arrival in the emergency room patient was found to be in A. fib with RVR and subsequently started on Cardizem drip. Work-up in the emergency room today significant findings were: Chemistry elevated ALT of 65, BNP of 1000 299, elevated D-dimer of 7891. BUN and creatinine were [address] angiogram reveals no pulmonary embolism and no acute findings on the chest. There is nonspecific biliary ductal dilatation greater than expected for patient's age. CT of the cervical spine shows moderate to severe cervical spondylosis. CT of the lumbar spine shows no acute abnormality. Patient has been admitted with syncope, A. fib with RVR and JUAN DANIEL. 03/19/2021 Heart rate is improved to 60s but irregular Alert and responsive Wheezing present 03/20/2021 Patient was on high flow oxygen yesterday Today the patient is on 5 L nasal cannula oxygen Oxygen decreased to 2 L nasal cannula oxygen Patient says that he has oxygen at home but the [facility] Hospitalist Physical - Constitutional Vitals: Temp Pulse Resp BP Pulse Ox 98.0 F 92 H 18 148/52 97 03/21/21 03:58 03/21/21 09:20 03/21/21 09:20 03/21/21 06:09 03/21/21 09:21 General appearance: Present: mild distress, well-nourished HEART Score - HEART Score Troponin: Troponin T 0.028 ng/mL (0.00-0.029) 03/18/21 06:28 Results - Labs CBC & Chem 7: 03/20/21 03:12 03/21/21 05:15 Labs: Laboratory Last Values WBC 5.3 K/mm3 (4.5-11.0) 03/20/21 03:12 RBC 3.77 M/mm3 (3.65-5.03) 03/20/21 03:12 Hgb 12.2 gm/dl (11.8-15.2) 03/20/21 03:12 Hct 34.5 % (35.5-45.6) L 03/20/21 03:12 MCV 92 fl (84-94) 03/20/21 03:12 MCH 32 pg (28-32) 03/20/21 03:12 MCHC 35 % (32-34) H 03/20/21 03:12 RDW 14.5 % (13.2-15.2) 03/20/21 03:12 Plt Count 213 K/mm3 (140-440) 03/20/21 03:12 Lymph % (Auto) 12.3 % (13.4-35.0) L 03/19/21 04:25 [place] % (Auto) 9.9 % (0.0-7.3) H 03/19/21 04:25 Eos % (Auto) 6.0 % (0.0-4.3) H 03/19/21 04:25 Baso % (Auto) 0.2 % (0.0-1.8) 03/19/21 04:25 Lymph # (Auto) 0.5 K/mm3 (1.2-5.4) L 03/19/21 04:25 [place] # (Auto) 0.4 K/mm3 (0.0-0.8) 03/19/21 04:25 Eos # (Auto) 0.3 K/mm3 (0.0-0.4) 03/19/21 04:25 Baso # (Auto) 0.0 K/mm3 (0.0-0.1) 03/19/21 04:25 Seg Neutrophils % 71.6 % (40.0-70.0) H 03/19/21 04:25 Seg Neutrophils # 3.2 K/mm3 (1.8-7.7) 03/19/21 04:25 PT 16.9 Sec. (12.2-14.9) H 03/19/21 04:25 INR 1.31 (0.87-1.13) H 03/19/21 04:25 APTT 47.9 Sec. (24.2-36.6) H 03/18/21 10:38 D-Dimer 7891.50 ng/mlDDU (0-234) H 03/17/21 19:21 Heparin Anti-Xa Level 0.23 U.I./ml (0.3-0.7) L 03/18/21 10:38 Sodium 141 mmol/L (137-145) 03/20/21 03:12 Potassium 4.3 mmol/L (3.6-5.0) 03/20/21 03:12 Chloride 106.0 mmol/L (98-107) 03/20/21 03:12 Carbon Dioxide 25 mmol/L (22-30) 03/20/21 03:12 Anion Gap 14 mmol/L 03/20/21 03:12 BUN 26 mg/dL (9-20) H 03/20/21 03:12 Creatinine 1.1 mg/dL (0.8-1.3) 03/21/21 05:15 Estimated GFR > 60 ml/min 03/21/21 05:15 BUN/Creatinine Ratio 20 % 03/20/21 03:12 Glucose 92 mg/dL (75-100) 03/20/21 03:12 POC Glucose 125 mg/dL (70-105) H 03/17/21 18:51 Calcium 8.8 mg/dL (8.4-10.2) 03/20/21 03:12 Magnesium 2.40 mg/dL (1.7-2.3) H 03/17/21 19:21 Ferritin 337.1 ng/mL (30.0-300.0) H 03/17/21 19: Ferritin 340.1 ng/mL (30.0-300.0) H 03/17/21 19:21 Total Bilirubin 0.40 mg/dL (0.1-1.2) 03/20/21 03:12 Direct Bilirubin < 0.2 mg/dL (0-0.2) 03/20/21 03:12 Indirect Bilirubin 0.2 mg/dL 03/20/21 03:12 AST 20 units/L (5-40) 03/20/21 03:12 ALT 41 units/L (7-56) 03/20/21 03:12 Alkaline Phosphatase 188 units/L (35-129) H 03/20/21 03:12 Lactate Dehydrogenase 201 units/L (91-180) H 03/17/21 19:21 Troponin T 0.028 ng/mL (0.00-0.029) 03/18/21 06:28 C-Reactive Protein 0.40 mg/dL (0.00-1.30) 03/17/21 19:21 NT-Pro-B Natriuret Pep 1299 pg/mL (0-900) H 03/17/21 19:21 Total Protein 5.9 g/dL (6.3-8.2) L 03/20/21 03:12 Albumin 3.5 g/dL (3.9-5) L 03/20/21 03:12 Albumin/Globulin Ratio 1.5 % 03/20/21 03:12 Triglycerides 136 mg/dL (2-149) 03/17/21 23:56 Cholesterol 158 mg/dL (50-199) 03/17/21 23:56 LDL Cholesterol Direct 117 mg/dL (50-130) 03/17/21 23:56 HDL Cholesterol 28 mg/dL (40-59) L 03/17/21 23:56 Cholesterol/HDL Ratio 5.64 % 03/17/21 23:56 Procalcitonin < 0.05 ng/mL (<0.15) 03/17/21 19:21 TSH 0.720 mlU/mL (0.270-4.200) 03/19/21 04:25 Urine Color Yellow (Yellow) 03/18/21 13:30 Urine Turbidity Slightly-cloudy (Clear) 03/18/21 13:30 Urine pH 5.0 (5.0-7.0) 03/18/21 13:30 Ur Specific [place] 1.044 (1.003-1.030) H 03/18/21 13:30 Urine Protein 100 mg/dl mg/dL (Negative) 03/18/21 13:30 Urine Glucose (UA) 50 mg/dL (Negative) 03/18/21 13:30 Urine Ketones Neg mg/dL (Negative) 03/18/21 13:30 Urine Blood Sm (Negative) 03/18/21 13:30 Urine Nitrite Neg (Negative) 03/18/21 13:30 Urine Bilirubin Neg (Negative) 03/18/21 13:30 Urine Urobilinogen < 2.0 mg/dL (<2.0) 03/18/21 13:30 Ur Leukocyte Esterase Mod (Negative) 03/18/21 13:30 Urine WBC (Auto) 10.0 /HPF (0.0-6.0) H 03/18/21 13:30 Urine RBC (Auto) 7.0 /HPF (0.0-6.0) 03/18/21 13:30 U Epithel Cells (Auto) 1.0 /HPF (0-13.0) 03/18/21 13:30 Urine Mucus Few /HPF 03/18/21 13:30 Urine Yeast (Budding) Few /HPF 03/18/21 13:30 Coronavirus (PCR) Negative (Negative) 03/18/21 09:00 Microbiology: Microbiology 03/18/21 13:30 Urine,Clean Catch Urine Culture - Final [place]/IV: Voiding Method Toilet Active Medications - Current Medications Current Medications: Generic Name Dose Route Start Last Admin Trade Name Freq PRN Reason Stop Dose Admin Acetaminophen 650 mg 03/18/21 00:55 Acetaminophen 325 Mg Tab PO Q6H PRN Pain MILD(1-3)/Fever >100.5/MILLS Albuterol 2.5 mg 03/20/21 08:00 Albuterol 2.5 Mg/3 Ml Nebu IH Q3HRT PRN Shortness Of Breath Albuterol/Ipratropium 1 ampul 03/20/21 08:00 03/21/21 09:19 Ipratropium/Albuterol Sulfate 3 Ml Ampul.Neb IH Not Given QIDRT LENORA Apixaban 5 mg 03/20/21 22:00 03/21/21 09:11 Apixaban 5 Mg Tab PO 5 mg Q12HR LENORA Administration Protocol Arformoterol Tartrate 15 mcg 03/18/21 20:00 03/21/21 09:19 Arformoterol 15 Mcg/2 Ml Nebu IH 15 mcg Q12HRT LENORA Administration Atorvastatin Calcium 20 mg 03/19/21 22:00 03/20/21 22:50 Atorvastatin 20 Mg Tab PO 20 mg QHS LENORA Administration Budesonide 0.5 mg 03/18/21 20:00 03/21/21 09:19 Budesonide 0.5 Mg/2 Ml Nebu IH 0.5 mg Q12HRT LENORA Administration Diltiazem HCl 60 mg 03/20/21 14:00 03/21/21 06:09 Diltiazem 30 Mg Tab PO 60 mg Q8H LENORA Administration Famotidine 20 mg 03/18/21 17:00 03/21/21 09:11 Famotidine 20 Mg Tab PO 20 mg QDAY LENORA Administration Hydralazine HCl 10 mg 03/19/21 15:37 03/19/21 15:44 Hydralazine 20 Mg/1 Ml Inj IV 10 mg Q3H PRN Administration Hypertension Levofloxacin/Dextrose 750 mg in 150 mls @ 100 mls/hr 03/22/21 10:00 Levaquin 750mg/150ml IV Q48HR LENORA Protocol Magnesium Hydroxide 30 ml 03/18/21 00:55 Magnesium Hydroxide (Mom) Oral Liqd Udc PO Q4H PRN Constipation Methylprednisolone Sodium Succinate 125 mg 03/20/21 07:30 03/21/21 06:09 Methylprednisolone Sod Succinate 125 Mg/2 Ml Inj IV 125 mg Q8HR LENORA Administration Morphine Sulfate 2 mg 03/18/21 00:55 Morphine 2 Mg/1 Ml Inj IV Q4H PRN Pain, Moderate (4-6) Morphine Sulfate 4 mg 03/18/21 00:55 Morphine 4 Mg/1 Ml Inj IV Q4H PRN Pain , Severe (7-10) Ondansetron HCl 4 mg 03/18/21 00:55 Ondansetron 4 Mg/2 Ml Inj IV Q8H PRN Nausea And Vomiting Sodium Chloride 10 ml 03/18/21 10:00 03/21/21 09:11 Sodium Chloride 0.9% 10 Ml Flush Syringe IV 10 ml BID LENORA Administration Sodium Chloride 10 ml 03/18/21 00:55 Sodium Chloride 0.9% 10 Ml Flush Syringe IV PRN PRN LINE FLUSH Nutrition/Malnutrition Assess - Dietary Evaluation Nutrition/Malnutrition Findings: Nutrition Notes Start: 03/18/21 09:42 Freq: Status: Active Protocol: Document 03/20/21 15:15 (Rec: 03/20/21 15:22 [email or web address]) Nutrition Notes Initial or Follow up Assessment Current Diagnosis Acute Kidney Injury,COPD, Hypertension Other Pertinent Diagnosis dehydration, syncope, a-fib Current Diet Cardiac Labs/Tests BUN 26 Pertinent Medications solu- medrol Height 5 ft 9 in Weight 52.2 kg Usual Body Weight 61.36 kg [place] Body Weight (kg) 72.72 BMI 16.9 Weight change and time frame 9.5% wt loss in 2 months Weight Status Underweight Subjective/Other Information Pt states wt loss likely due to decreased appetite. Pt eating 25% of meals and 100% of ONS. Burn Absent Trauma Absent Current % PO Poor (25-49%) Minimum of two criteria Yes Energy Intake (non-severe) <75% Estimated Energy Requirement >7 days Interpretation of Weight Loss (severe) >7.5% in 3 months Muscle Mass Mild Depletion (non-severe) #1 Nutrition Diagnosis Malnutrition Etiology chronic disease, advanced age As Evidenced by Signs and Symptoms <75% of EER in >7 days, >7.5% wt loss in 3 months, muscle wasting Is patient on ventilator? No Is Patient Ambulatory and/or Out of Bed No REE-([place]. Jeor-confined to bed) 1509.324 Kcal/Kg value to use for calculation 37 Approximate Energy Requirements Using 1931 kcal/Kg Calculation Used for Recommendations Kcal/kg Additional Notes Protein: (1.2-1.5g/kg) 63-78g Fluid: 1ml/kcal or per MD Nutrition Intervention Change Diet Order: continue Add Supplement/Snack (indicate name/kcal Ensure Enlive TID /protein ) Provides kCal: 1,050 Provides Protein (gm) 60 Goal #1 Meet at least 75% of energy and protein needs via PO and ONS Goal #2 weight gain/maintenance Anticipated Discharge Needs: cardiac Follow-Up By: 03/23/21 Additional Comments FU for intakes and ONS tolerance
--- NOTE | 2021-03-21 11:19 | Progress Note ---
Assessment and Plan Chronic Afib * Patient rate is controlled * Continue Eliquis 5mg BID Acute hypoxic respiratory failure * Patient is on 2L nasal cannula * Managed by primary team HTN * Continue diltiazem to 60mg PO TID NSTEMI TypeII * May consider ischemic eval as an outpatient once respiratory status is stable * Echo 03/18/2021- EF 50-55%, normal left ventricular wall thickness, right and left atria are normal size, mitral valve leaflets are calcified. Patient can follow up 1-2weeks after discharge with Dr. [place], [facility] [employer], phone [phone] Patient seen in conjunction with Dr. Tong who agrees with this assessment and plan for care. Will see patient as needed - Patient Problems (1) JUAN DANIEL (acute kidney injury) Current Visit: Yes Status: Acute (2) Atrial fibrillation with RVR Current Visit: Yes Status: Acute (3) COPD exacerbation Current Visit: Yes Status: Acute (4) Chronic a-fib Current Visit: Yes Status: Acute (5) Syncope Current Visit: Yes Status: Acute Qualifiers: Syncope type: vasovagal syncope Qualified Code(s): R55 - Syncope and collapse Subjective Date of service: 03/21/21 Principal diagnosis: Atrial fibrillation with RVR, syncope, COPD exacerbation Interval history: Patient sitting in bed with no complaints Afib 80s with no events on monitor Objective Last Vital Signs Temp 98.0 F 03/21/21 10:13 Pulse 87 03/21/21 10:13 Resp 18 03/21/21 10:13 BP 138/49 03/21/21 10:13 Pulse Ox 96 03/21/21 10:13 - Physical Examination General: No Apparent Distress, Cachectic HEENT: Positive: PERRL, EOMI Neck: Positive: neck supple Cardiac: Positive: irregularly irregular Lungs: Positive: Normal Breath Sounds Neuro: Positive: Grossly Intact Abdomen: Positive: Soft Extremities: Present: normal. Absent: edema - Labs and Meds Comprehensive Metabolic Panel 03/21/21 Range/Units 05:15 Creatinine 1.1 (0.8-1.3) mg/dL - Imaging and Cardiology Echo: pending - Telemetry EKG Rhythm: Atrial Fibrillation - EKG Supraventricular dysrhythmia: atrial fibrillation
--- NOTE | 2021-03-21 12:05 | Progress Note ---
Assessment and Plan 75-year-old male with history of hypertension, asthma, and COPD is brought in by EMS after a syncopal episode and ground-level fall. The patient states that he was walking when he suddenly experienced lightheadedness and blacked out. He woke up and he was on the floor. He says he did not hit his head but that he only bumped his right elbow. He denies any preceding chest pain, shortness of breath, palpitations, sweating, or any other symptoms other than lightheadedness. He does say that for the past 3 days he has not been eating well and has not been feeling well. According to the EMS report, the patient's initial blood pressure was 92/46. He was given 1 L of IV fluids which improved his blood pressure to 142/65. His heart rate was in the 100s to 110s. The patient states he has no complaints at this time. He is not vaccinated against COVID-19. He denies any headache, vision change, neck pain, back pain, chest pain, palpitations, abdominal pain, nausea/vomiting, dysuria, focal weakness, sensory changes, vertigo, or any other complaints. He says his right elbow was only bumped and he has no significant pain there. Patient has heavy history of smoking. Used to smoke 3 packs a dayx 66 years. Still smoking not as much. Counseled to stop smoking. Denies alcohol or drug abuse. 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 Weak. Patient is on 2 litres O2. O2 saturation 94%. Denies shor tness of breath or cough. Patient afebrile. No leukocytosis. Chest xray done 03/16/21 Lungs are hyperexpanded. Chronic interstitial change No pneumothorax. Nodular density projects overlying left lung however this is a crossing ribs. Follow-up chest x-ray recommended. Patient has Angio CT of chest 03/17/[address] evidence for pulmonary embolism. No acute findings in the chest. Nonspecific biliary ductal dilatation is greater than expected for the patient's age. Patient is on I/V solumedrol, Albuterol/atrovent aerosol treatments,Apixaban, Levaquin and famotidine. - Patient Problems (1) Acute respiratory failure with hypoxia Status: Acute Plan to address problem: O2 2 litres Albuterol/atrovent aerosol treatments. Continue I/V solumedrol. Continue Apixaban Continue famotidine. Continue levaquin ABGs on O2. (2) COPD exacerbation Status: Acute Plan to address problem: O2 2 litres. Albuterol/atrovent aerosol treatments. Continue I/V solumedrol. Continue Apixaban Continue famotidine. Continue levaquin ABGs on O2. (3) Atrial fibrillation with RVR Status: Acute Plan to address problem: Patient is on Apixaban. Management as per cardiology. (4) Suspected 2019 novel coronavirus infection Status: Acute Plan to address problem: [place] virus PCR negative. (5) JUAN DANIEL (acute kidney injury) Status: Acute Plan to address problem: Management as per nephrology. (6) Concussion Status: Acute Plan to address problem: Management as per neurology. (7) Elevated troponin Status: Chronic Plan to address problem: Management as per cardiology. (8) NSTEMI (non-ST elevated myocardial infarction) Status: Acute Plan to address problem: Management as per cardiology. (9) Syncope Status: Acute Qualifiers: Syncope type: vasovagal syncope Qualified Code(s): R55 - Syncope and collapse Plan to address problem: Management as per nephrology. Subjective Date of service: 03/21/21 Principal diagnosis: Atrial fibrillation with RVR, syncope, COPD exacerbation Interval history: 75-year-old male with history of hypertension, asthma, and COPD is brought in by EMS after a syncopal episode and ground-level fall. The patient states that he was walking when he suddenly experienced lightheadedness and blacked out. He woke up and he was on the floor. He says he did not hit his head but that he only bumped his right elbow. He denies any preceding chest pain, shortness of breath, palpitations, sweating, or any other symptoms other than lightheadedness. He does say that for the past 3 days he has not been eating well and has not been feeling well. According to the EMS report, the patient's initial blood pressure was 92/46. He was given 1 L of IV fluids which improved his blood pressure to 142/65. His heart rate was in the 100s to 110s. The patient states he has no complaints at this time. He is not vaccinated against COVID-19. He denies any headache, vision change, neck pain, back pain, chest pain, palpitations, abdominal pain, nausea/vomiting, dysuria, focal weakness, sensory changes, vertigo, or any other complaints. He says his right elbow was only bumped and he has no significant pain there. Patient has heavy history of smoking. Used to smoke 3 packs a dayx 66 years. Still smoking not as much. Counseled to stop smoking. Denies alcohol or drug abuse. 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 Weak. Patient is on 2 litres O2. O2 saturation 94%. Denies shortness of breath or cough. Patient afebrile. No leukocytosis. Chest xray done 03/16/21 Lungs are hyperexpanded. Chronic interstitial change No pneumothorax. Nodular density projects overlying left lung however this is a crossing ribs. Follow-up chest x-ray recommended. Patient has Angio CT of chest 03/17/[address] evidence for pulmonary embolism. No acute findings in the chest. Nonspecific biliary ductal dilatation is greater than expected for the patient's age. Patient is on I/V solumedrol, Albuterol/atrovent aerosol treatments,Apixaban, Levaquin and famotidine. Objective Vital Signs - 12hr 03/21/21 03/21/21 03/21/21 03:58 04:00 06:09 Temperature 98.0 F Pulse Rate 95 H 97 H 87 Pulse Rate [ Anterior Bilateral Throughout] Respiratory 18 Rate Respiratory Rate [Anterior Bilateral Throughout] Blood Pressure 151/52 148/52 O2 Sat by Pulse 95 Oximetry 03/21/21 03/21/21 03/21/21 09:20 09:21 10:13 Temperature 98.0 F Pulse Rate 87 Pulse Rate [ 92 H Anterior Bilateral Throughout] Respiratory 18 Rate Respiratory 18 Rate [Anterior Bilateral Throughout] Blood Pressure 138/49 O2 Sat by Pulse 97 96 Oximetry Constitutional: no acute distress, alert, other (Weak) Eyes: non-icteric ENT: oropharynx moist Neck: supple, no lymphadenopathy Effort: mildly labored Ascultation: Bilateral: diminished breath sounds, other (Prolonged expiratory ph ase.) Cardiovascular: irregular rhythm Gastrointestinal: normoactive bowel sounds, soft, non-tender Integumentary: normal Extremities: no cyanosis, no edema Neurologic: non-focal exam, pupils equal and round Psychiatric: depressed CBC and BMP: 03/20/21 03:12 03/21/21 05:15 ABG, PT/INR, D-dimer: PT/INR, D-dimer PT 16.9 Sec. (12.2-14.9) H 03/19/21 04:25 INR 1.31 (0.87-1.13) H 03/19/21 04:25 D-Dimer 7891.50 ng/mlDDU (0-234) H 03/17/21 19:21 Abnormal lab findings: Abnormal Labs 03/17/21 03/17/21 03/17/21 18:51 19:21 19:21 Hct MCHC Lymph % (Auto) 7.[address] [place] % (Auto) Eos % (Auto) Lymph # (Auto) 0.7 L Seg Neutrophils % 81.1 H PT 16.0 H INR 1.22 H APTT D-Dimer 7891.50 H Heparin Anti-Xa Level Chloride BUN Creatinine Glucose POC Glucose 125 H Magnesium Ferritin AST ALT Alkaline Phosphatase Lactate Dehydrogenase Troponin T NT-Pro-B Natriuret Pep Total Protein Albumin HDL Cholesterol Ur Specific [place] Urine WBC (Auto) 03/17/21 03/17/21 03/17/21 19:21 19:21 19:21 Hct MCHC Lymph % (Auto) [place] % (Auto) Eos % (Auto) Lymph # (Auto) Seg Neutrophils % PT INR APTT D-Dimer Heparin Anti-Xa Level Chloride BUN 31 H Creatinine 2.0 H Glucose 114 H 115 H POC Glucose Magnesium 2.40 H Ferritin 340.1 H AST ALT 65 H Alkaline Phosphatase 223 H Lactate Dehydrogenase 201 H Troponin T NT-Pro-B Natriuret Pep 1299 H Total Protein Albumin HDL Cholesterol Ur Specific [place] Urine WBC (Auto) 03/17/21 03/17/21 03/18/21 19:21 23:56 10:38 Hct MCHC Lymph % (Auto) [place] % (Auto) Eos % (Auto) Lymph # (Auto) Seg Neutrophils % PT 15.6 H INR 1.18 H APTT 47.9 H D-Dimer Heparin Anti-Xa Level 0.23 L Chloride BUN Creatinine Glucose POC Glucose Magnesium Ferritin 337.1 H AST ALT Alkaline Phosphatase Lactate Dehydrogenase Troponin T 0.032 H NT-Pro-B Natriuret Pep Total Protein Albumin HDL Cholesterol 28 L Ur Specific [place] Urine WBC (Auto) 03/18/21 03/18/21 03/18/21 10:38 10:38 13:30 Hct 34.4 L D MCHC 35 H Lymph % (Auto) [place] % (Auto) Eos % (Auto) Lymph # (Auto) Seg Neutrophils % PT INR APTT D-Dimer Heparin Anti-Xa Level Chloride BUN Creatinine 1.6 H Glucose POC Glucose Magnesium Ferritin AST ALT Alkaline Phosphatase Lactate Dehydrogenase Troponin T NT-Pro-B Natriuret Pep Total Protein Albumin HDL Cholesterol Ur Specific [place] 1.044 H Urine WBC (Auto) 10.0 H 03/19/21 03/19/21 03/19/21 04:25 04:25 04:25 Hct 33.9 L MCHC 35 H Lymph % (Auto) 12.[address] [place] % (Auto) 9.9 H Eos % (Auto) 6.0 H Lymph # (Auto) 0.5 L Seg Neutrophils % 71.6 H PT 16.9 H INR 1.31 H APTT D-Dimer Heparin Anti-Xa Level Chloride 109.3 H BUN 29 H Creatinine 1.4 H Glucose POC Glucose Magnesium Ferritin AST ALT Alkaline Phosphatase Lactate Dehydrogenase Troponin T NT-Pro-B Natriuret Pep Total Protein Albumin HDL Cholesterol Ur Specific [place] Urine WBC (Auto) 03/19/21 03/20/21 03/20/21 04:25 03:12 03:12 Hct 34.5 L MCHC 35 H Lymph % (Auto) [place] % (Auto) Eos % (Auto) Lymph # (Auto) Seg Neutrophils % PT INR APTT D-Dimer Heparin Anti-Xa Level Chloride BUN 26 H Creatinine Glucose POC Glucose Magnesium Ferritin AST 43 H ALT 62 H Alkaline Phosphatase 212 H 188 H Lactate Dehydrogenase Troponin T NT-Pro-B Natriuret Pep Total Protein 5.9 L 5.9 L Albumin 3.5 L 3.5 L HDL Cholesterol Ur Specific [place] Urine WBC (Auto)
[2021-03-21 13:29] VITALS: BP 153/63
--- NOTE | 2021-03-21 15:15 | Discharge Summary ---
Providers - Providers Date of Admission: 03/18/21 00:49 Date of discharge: 03/21/21 Attending physician: TIFFANY NORTH 03/18/21 00:56 Consult to Dietitian/Nutrition [CONS] Routine Physician Instructions: Reason For Exam: Reason for Consult: Diet education Consult to Physician [CONS] Routine Comment: Consulting Provider: JENNI MCCONNELL Physician Instructions: Reason For Exam: Elevated liver enzymes 03/18/21 01:04 Consult to Cardiology [CONS] Routine Consulting Provider: VIPUL PAYNE Reason For Exam: Afib with RVR 03/18/21 06:33 Consult to Physician [CONS] Routine Comment: Consulting Provider: LORI DE JESUS Physician Instructions: Reason For Exam: PUI 03/18/21 08:07 Consult to Physician [CONS] Routine Comment: Consulting Provider: JAYESH SHELL Physician Instructions: Reason For Exam: critical care management 03/20/21 12:54 Physical Therapy Evaluation and Treat [CONS] Urgent Comment: Reason For Exam: PT to eval and treat 03/20/21 12:55 Occupational Therapy Evaluate and Treat [CONS] Urgent Comment: Reason For Exam: PT to eval and treat Primary care physician: DAIRY TESTER Hospitalization Reason for admission: Syncope ground-level fall Condition: Stable Pertinent studies: Chest x-ray X-ray pelvis CT head without contrast no acute intracranial abnormality CT cervical spine; no acute findings moderate to severe cervical spondylosis CT lumbar spine no acute abnormality CTA chest no PE no acute findings in the chest nonspecific biliary ductal dilatation better than expected for the patient call the echocardiogram; Carotid Doppler bilateral less than 50% stenosis less than 50% stenosis echocardiogram; LV function and ejection fraction 50 to 55% next echocardiogram Hospital course: Syncope Ground-level fall 75-year-old male with known history of hypertension, asthma and COPD brought into the emergency room by EMS after having a syncopal episode and a ground- level fall. Patient indicates that he was walking and suddenly had lightheadedness and collapsed. He woke up while on the floor and denies any headache and denies any head injury. He however states that he bumped his right elbow and had some abrasions. Patient denies any chest pain or shortness of breath, no nausea vomiting, no abdominal pain, no fever or chills, denies any headache prior to this episode. Upon arrival of EMS blood pressure was said to be low with systolic in the 90s and diastolic in the 40s. Was given a bolus of IV fluid normal saline 1 L with significant improvement of his blood pressure. Upon arrival in the emergency room patient was found to be in A. fib with RVR and subsequently started on Cardizem drip. 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 Patient advised to follow with all the consultants for further evaluation management Cleared by all the consultants for discharge and follow-up in their office per schedule stable at discharge Strongly advised to quit tobacco use nicotine patch as needed Discharge diagnosis;, -- Acute respiratory failure with hypoxia Current Visit: Yes Status: Acute -- COPD exacerbation Current Visit: Yes Status: Acute --Acute kidney injury; Current Visit: Yes Status: Acute --Malnutrition moderate Current Visit: Yes Status: Acute --Atrial fibrillation with RVR Current Visit: Yes Status: Acute -- Elevated troponin Current Visit: Yes Status: Chronic --Nonspecific transaminitis Current Visit: Yes Status: Acute --New onset a-fib Current Visit: Yes Status: Acute --Suspected 2019 novel coronavirus infection Current Visit: Yes Status: Acute Coronavirus pcr negative -- Syncope Current Visit: Yes Status: Acute Secondary to A. fib and respiratory failure -- DVT prophylaxis Current Visit: Yes Status: Acute On Eliquis and GI prophylaxis Stable at discharge Disposition: [id number] TO HOME OR SELFCARE Final Discharge Diagnosis (Prints w/discharge instructions): Acute on chronic hypoxic respiratory failure. Acute exacerbation of COPD. Acute kidney injury. A. fib with rapid ventricular rate. New onset A. fib. chronic anticoagulation. Nonspecific elevation in troponin. PUI vasques PCR test negative. syncope. Moderate malnutrition Time spent for discharge: 35 min Core Measure Documentation - Palliative Care Palliative Care/ Comfort Measures: Not Applicable - Core Measures Any of the following diagnoses?: none Exam - Constitutional Vitals: Temp Pulse Resp BP Pulse Ox 98.0 F 83 19 153/63 96 03/21/21 10:13 03/21/21 14:00 03/21/21 14:00 03/21/21 13:29 03/21/21 10:13 General appearance: Present: no acute distress, well-nourished - EENT Eyes: Present: PERRL, EOM intact ENT: hearing intact, clear oral mucosa - Neck Neck: Present: supple, normal ROM - Respiratory Respiratory effort: normal Respiratory: bilateral: diminished, negative: rales, rhonchi, wheezing - Cardiovascular Rhythm: regular Heart Sounds: Present: S1 & S2 - Extremities Extremities: no ischemia, No edema - Abdominal General gastrointestinal: Present: soft, non-tender, non-distended, normal bowel sounds - Integumentary Integumentary: Present: clear, warm - Musculoskeletal Musculoskeletal: strength equal bilaterally, generalized weakness - Psychiatric Psychiatric: appropriate mood/affect, cooperative - Neurologic Neurologic: moves all extremities Plan Activity: advance as tolerated, fall precautions Diet: other (Cardiac diet) Special Instructions: smoking cessation Additional Instructions: Advised to comply with medications diet and follow-up visits. If you have worsening symptoms contact MD or go to emergency room as needed. Advised smoking cessation, nicotine patch as needed. Advised to fo llow-up with cardiology ,pulmonary, GI and primary care. physician per schedule. Continue home oxygen as before Follow up with: PRIMARY CARE, [Primary Care Provider] - 3-5 Days VIRAL CARRASCO MD [Staff Physician] - 7 Days BRYAN PHILIP MD [Staff Physician] - 7 Days JAYESH SHELL MD [Staff Physician] - 7 Days Prescriptions: dilTIAZem CD [Cardizem Cd] 180 mg PO QDAY #30 cap Apixaban [Eliquis] 5 mg PO Q12HR #60 tablet Nicotine [Habitrol] 14 mg TD DAILY #30 patch AtorvaSTATin [Lipitor] 20 mg PO QHS #30 tablet Famotidine [Pepcid] 20 mg PO QDAY #30 tablet Prednisone [predniSONE 10 mg (6-Day Pack, 21 Tabs)] 10 mg PO .TAPER #1 tab.ds.pk Budesonide [Pulmicort Respules] 0.5 mg IH Q12HRT 30 Days #30 nebu
[2021-03-22] MEDS ORDERED: levoFLOXacin 750 MG TAB PO SCH (10:00)
== END 2021-03-21 17:19 | disposition home health service (06) | DRG 280 ==
LOC: ED 18:53 → CC1 03-18 00:49 → IMCU 03-18 18:15 → 4A 03-19 16:48
PROVIDERS: ADMIT Internal Medicine Geriatric Medicine; ATTEND Internal Medicine
PROC: 5A0945A Assistance with Respiratory Ventilation, 24-96 Consecutive Hours, High Flow/Velocity Cannula (ICD-10-PCS; 2021-03-18)
PROC: 4A033R1 Measurement of Arterial Saturation, Peripheral, Percutaneous Approach (ICD-10-PCS; principal; 2021-03-21)
DX: I48.91 Unspecified atrial fibrillation (principal); J96.21 Acute and chronic respiratory failure with hypoxia; I21.A1 Myocardial infarction type 2; N17.9 Acute kidney failure, unspecified; J44.1 Chronic obstructive pulmonary disease with (acute) exacerbation; R65.10 Systemic inflammatory response syndrome (SIRS) of non-infectious origin without acute organ dysfunction; R64 Cachexia; Z68.1 Body mass index [BMI] 19.9 or less, adult; E44.0 Moderate protein-calorie malnutrition; S06.0X0A Concussion without loss of consciousness, initial encounter; I10 Essential (primary) hypertension; R62.7 Adult failure to thrive; I95.9 Hypotension, unspecified; Z20.822 Contact with and (suspected) exposure to COVID-19; E86.0 Dehydration; R79.89 Other specified abnormal findings of blood chemistry; F17.200 Nicotine dependence, unspecified, uncomplicated; Z79.01 Long term (current) use of anticoagulants; W18.30XA Fall on same level, unspecified, initial encounter; Y92.89 Other specified places as the place of occurrence of the external cause; Y93.01 Activity, walking, marching and hiking; Z71.6 Tobacco abuse counseling; R74.01 Elevation of levels of liver transaminase levels
CPT/HCPCS: 36415; 36600; 70450; 71046; 71275; 72125; 72131; 72170; 76705; 80048; 80061; 80076; 81001; 82565; 82728; 82805; 82947; 82962; 83615; 83735; 83880; 84145; 84443; 84484; 85014; 85018; 85025; 85027; 85379; 85520; 85610; 85730; 86140; 87086; 93005; 93306; 93880; 94640; 96374; 99292; 99406; G0378; J0360; J1644; J1956; J2930; J7030; Q9967; U0003